=== PATIENT | male | born 1960 | race Caucasian/White ===

== ENCOUNTER 2018-11-09 08:28 | Inpatient (IN) | payer MEDICAID ==
[~2018-11-09] VITALS: Ht 172.7 cm; Wt 77.1 kg
[~2018-11-09 08:28] MED LIST: HYDR25SU23 PR; PANT40TA4 PO
[2018-11-09 08:33] VITALS: Ht 172.7 cm; Wt 77.1 kg
--- NOTE | 2018-11-09 09:34 | ERD ---
ER Documentation Chief Complaint Chief Complaint blood in stool x 1 week HPI 58-year-old man complaining of blood in stool x1 week, states he has blood with most every bowel movement and mild pain with defecation. He has been feeling dizzy and lightheaded for the last couple days as well. He denies fevers or chills, no chest pain or shortness of breath, no complaints of vomiting or diarrhea ROS All systems reviewed and are negative except as per history of present illness. Medications Home Meds Discontinued Scripts Hydrocortisone Acetate (Anusol-Hc) 25 Mg Supp.rect, 25 MG [place] BID, #14 SUPP.RECT Prov:MARYANA LOCKETT S. 07/23/18 Pantoprazole* (Pantoprazole*) 40 Mg Tablet.dr, 40 MG PO BID@06,18, #60 5 Refills Prov:MARYANA LOCKETT S. 07/23/18 Allergies Allergies: Coded Allergies: No Known Allergy (Unverified , 11/09/18) PMhx/Soc Duodenal ulcer and erosive gastritis, anemia, asthma, history of small bowel obstruction Medical and Surgical Hx: pt denies Medical Hx History of Surgery: No Anesthesia Reaction: No Hx Neurological Disorder: No Hx Respiratory Disorders: Yes (asthma for 20 years) Hx Cardiac Disorders: No Hx Psychiatric Problems: No Hx Miscellaneous Medical Probl: No Hx Alcohol Use: Yes (sometimes during the weekends) Hx Substance Use: No Hx Tobacco Use: No Smoking Status: Never smoker FmHx Family History: No diabetes Physical Exam Vitals Vital Signs Date Temp Pulse Resp B/P (MAP) Pulse Ox O2 O2 Flow FiO2 Time Delivery Rate 11/09/18 98.1 81 16 154/74 100 08:33 (100) Physical Exam Const: No acute distress, afebrile HEENT: Pale conjunctive, no goiter, no jaundice, moist mucous membranes Resp: Clear to auscultation bilaterally Cardio: Regular rate and rhythm, no murmurs Abd: Soft, non tender, non distended, no rigidity or rebound Skin: No petechiae or rashes Back: No midline or flank tenderness Ext: No cyanosis, or edema Neur: Awake and alert x3, no focal deficits or facial asymmetry Psych: Normal Mood and Affect Result Diagram: 11/09/18 1040 11/09/18 1040 Results 24 hrs Laboratory Tests Test 11/09/18 10:40 White Blood Count 4.2 10^3/ul Red Blood Count 3.85 10^6/ul Hemoglobin 7.2 g/dl Hematocrit 25.0 % Mean Corpuscular Volume 64.9 fl Mean Corpuscular Hemoglobin 18.7 pg Mean Corpuscular Hemoglobin Concent 28.8 g/dl Red Cell Distribution Width 17.7 % Platelet Count 420 10^3/UL Mean Platelet Volume 10.1 fl Immature Granulocytes % 0.200 % Neutrophils % 55.5 % Lymphocytes % 32.5 % Monocytes % 9.9 % Eosinophils % 1.4 % Basophils % 0.5 % Nucleated Red Blood Cells % 0.0 /100WBC Immature Granulocytes # 0.010 10^3/ul Neutrophils # 2.3 10^3/ul Lymphocytes # 1.4 10^3/ul Monocytes # 0.4 10^3/ul Eosinophils # 0.1 10^3/ul Basophils # 0.0 10^3/ul Nucleated Red Blood Cells # 0.0 10^3/ul Prothrombin Time 13.4 Sec Prothrombin Time Ratio 1.0 INR International Normalized Ratio 1.01 Activated Partial Thromboplast Time 30.3 Sec Sodium Level 140 mmol/L Potassium Level 4.2 mmol/L Chloride Level 108 mmol/L Carbon Dioxide Level 26 mmol/L Anion Gap 6 Blood Urea Nitrogen 13 mg/dl Creatinine 0.78 mg/dl Est Glomerular Filtrat Rate mL/min > 60 mL/min Glucose Level 111 mg/dl Calcium Level 9.2 mg/dl Total Bilirubin 0.5 mg/dl Direct Bilirubin 0.00 mg/dl Indirect Bilirubin 0.5 mg/dl Aspartate Amino Transf (AST/SGOT) 18 IU/L Alanine Aminotransferase (ALT/SGPT) 29 IU/L Alkaline Phosphatase 72 IU/L Total Protein 7.7 g/dl Albumin 4.2 g/dl Globulin 3.50 g/dl Albumin/Globulin Ratio 1.20 Lipase 60 U/L Current Medications Medications Dose Sig/Phan Start Time Status Last (Trade) Ordered Route PRN Stop Time Admin Dose Reason Admin Sodium 1,000 ml @ Q1H STAT 11/09/18 DC 11/09/18 Chloride 1,000 mls/hr IV 10:04 10:04 11/09/18 11:03 Procedures/MDM IV line was established patient was placed on director strategy rhythm strip revealed a sinus rhythm at about 80 bpm with upright P and T waves. Patient was afebrile I administered 1 L normal saline IV CBC reveals anemia with a hemoglobin of 7.2, lecture lites are unremarkable, liver function tests normal Patient has an external hemorrhoid on exam and I suspect his bleeding with bowel movements and has caused anemia, his last hemoglobin was over 8. I ordered transfusion 1 unit PRBC IV over 2 hours Patient will be admitted to [facility] for continued medical management, transfusion, GI consultation Departure Diagnosis: Primary Impression: Symptomatic anemia Additional Impression: Bleeding hemorrhoid Condition: ASHLEIGH Sheppard MD November 09, 2018 09:34
[2018-11-09] MEDS ORDERED: SOD CHLORIDE 0.9% 1,000 ML IV STA (10:04)
[2018-11-09] MEDS ORDERED: ZOLPIDEM 5 MG TAB PO PRN (15:00)
[2018-11-09] MEDS ORDERED: ALBUTEROL 0.083% (NEB) 2.5 MG/3 ML AMP HHN ONE (15:00)
[2018-11-09] MEDS ORDERED: ACETAMINOPHEN 325 MG TAB PO PRN (15:00)
[2018-11-09] MEDS ORDERED: HYDROCODONE/APAP (5/325) TAB PO PRN (15:00)
[2018-11-09] MEDS: DOCUSATE SODIUM 100 MG CAP PO SCH (15:00)
[2018-11-09] MEDS ORDERED: ONDANSETRON 4 MG INJ IV PRN (15:00)
--- NOTE | 2018-11-09 15:06 | HP ---
Date/Time of Note Date/Time of Note DATE: 11/09/18 TIME: 14:54 Assessment/Plan VTE Prophylaxis SCD applied (from Nsg): Yes Pharmacological prophylaxis: NA/contraindicated Pharm contraindication: bleeding Assessment/Plan Hospital Course 1. hematochezia : recurrent -colonoscopy 06/2018 showed polyps removed in the ascending colon as well as in the rectum -:. Pathology on ascending colon polyps showed tubular adenoma and the rectal polyp showed leiomyomatous polyps without additional findings -GI consult -stool softeners 2. Acute on chronic blood loss anemia -transfuse 2 units 3. Known kidney mass -needs f/u screening CT in 2 months -repeat USS? -no reports of hematuria though Result Diagram: 11/09/18 1040 11/09/18 1040 Results 24hrs Laboratory Tests Test 11/09/18 10:40 White Blood Count 4.2 #L Red Blood Count 3.85 #L Hemoglobin 7.2 L Hematocrit 25.0 L Mean Corpuscular Volume 64.9 #L Mean Corpuscular Hemoglobin 18.7 #L Mean Corpuscular Hemoglobin Concent 28.8 L Red Cell Distribution Width 17.7 H Platelet Count 420 #H Mean Platelet Volume 10.1 Immature Granulocytes % 0.200 Neutrophils % 55.5 Lymphocytes % 32.5 Monocytes % 9.9 Eosinophils % 1.4 Basophils % 0.5 Nucleated Red Blood Cells % 0.0 Immature Granulocytes # 0.010 Neutrophils # 2.3 Lymphocytes # 1.4 Monocytes # 0.4 Eosinophils # 0.1 Basophils # 0.0 Nucleated Red Blood Cells # 0.0 Prothrombin Time 13.4 Prothrombin Time Ratio 1.0 INR International Normalized Ratio 1.01 Activated Partial Thromboplast Time 30.3 Sodium Level 140 Potassium Level 4.2 Chloride Level 108 Carbon Dioxide Level 26 Anion Gap 6 Blood Urea Nitrogen 13 Creatinine 0.78 Est Glomerular Filtrat Rate mL/min > 60 Glucose Level 111 Calcium Level 9.2 Total Bilirubin 0.5 Direct Bilirubin 0.00 Indirect Bilirubin 0.5 Aspartate Amino Transf (AST/SGOT) 18 Alanine Aminotransferase (ALT/SGPT) 29 Alkaline Phosphatase 72 Total Protein 7.7 Albumin 4.2 Globulin 3.50 H Albumin/Globulin Ratio 1.20 Lipase 60 HPI/ROS Admit Date/Time Admit Date/Time Hx of Present Illness 58-year-old male who presents to emergency room with concerns for rectal bleeding of one days duration. Patient has had on and off rectal bleeding he states for the last 1 year. He was admitted to this facility June 2018 at that time he was admitted for recurrent small bowel obstruction but also due to hematochezia he underwent EGD and colonoscopy. EGD was found to have a duodenal ulcer and erosive esophagitis, colonoscopy had polyps removed in the ascending colon as well as in the rectal:. Pathology and ascending colon polyps showed tubular adenoma and the rectal polyp showed ligamentous polyps without additional findings. Patient did well for a while but hematochezia has recurred. In the ER, he was found to have a hemoglobin of 7.2. He is being admitted for further work-up and optimization. He denies passing out, denies dizziness, denies lethargy though. Denies melena. . ROS 12 point review if systems was done and pertinent findings are as noted. . PMH/Family/Social Past Medical History H/o Rectal bleeding- s/p Colonoscopy 07/21/18 x3 colon polyps, removed B-Ascending colon polyps x2, out by snare: -- Tubular adenomas involving all fragments. -- Non-involved colon mucosa is very scanty. -- No high grade dysplasia is identified. C-Rectal polyp, biopsies: -- Leiomyomatous polyp. s/p EGD 07/21/18- Duodenal ulcer, severe esophagitis A-Esophageal biopsies: -- Erosive esophagitis with focal acute neutrophilic exudate, associated with acute and chronic inflammation and mild eosinophilic cell infiltrate in the lamina propria. -- A scanty glandular epithelium is present. -- An Alcian Blue with a PAS counterstain and appropriate control, is negative for fungal organisms and intestinal metaplasia in the scanty glandular epithelium. -- A Giemsa stain with an appropriate control, is negative for H. pylori organisms. -- No malignancy, dysplasia or viral cytopathic effect is identified. Iron deficiency anemia Left kidney mass -There is a 12.6 mm exophytic mass near the lower pole of the left kidney, complex cyst or solid lesion kast seen 07/11 -recommends repeat CT in 6 months 12/2018 Asthma History of SBO Coded Allergies: No Known Allergy (Unverified , 11/09/18) Past Surgical History Past Surgical Hx: no surgical history Family History Significant Family History: no pertinent family hx Social History Alcohol Use: none Smoking Status: Never smoker Drug Use: other Exam/Review of Systems Vital Signs Vitals Vital Signs Date Temp Pulse Resp B/P (MAP) Pulse Ox O2 O2 Flow FiO2 Time Delivery Rate 11/09/18 97.8 67 18 129/70 100 Room Air 10:40 (89) Exam Constitutional: alert, oriented; No distress Psych: nl mood/affect Head: normocephalic Eyes: PERRL ENMT: mucosa pink and moist Neck: supple Respiratory: clear to auscultation Cardiovascular: regular rate and rhythm; No murmurs/extra sounds Gastrointestinal: soft, non-tender, bowel sounds Genitourinary - Male: nl penis, nl scrotum Extremities: No edema Neurological: nl mental status, nl speech, nl strength Skin: No ecchymosis Additional Comments rectal exam: visual only, no visible hemorrhoids GAUDENCIO LEYVA November 09, 2018 15:06
[2018-11-09 15:50] VITALS: BP 103/68; PULSE 56; RESP 18
[2018-11-09 16:35] VITALS: BP 135/62; RESP 18
--- NOTE | 2018-11-09 16:52 | CONS ---
Assessment/Plan Assessment/Plan Hospital Course (Demo Recall) Summary Assessment and Plan: Assessment: Hematochezia Microcytic anemia Personal history of colon polyps (TA, and Leiomyomatous) s/p Colonoscopy 07/21/18 x3 colon polyps, ablated Left kidney mass -12.6 mm exophytic mass medial lower pole left kidney with small calcifications. -Work-up per hospitalist Asthma History of SBO Plan: Monitor labs transfuse for hgb less than 7.5 Clear liquid diet NPO after 11/10/18 0830 Colonoscopy tomorrow Endoscopy - risks/benefits/alternatives/indications of procedure and sedation/anesthesia discussed with patient who states understading and gives informed consent to proceed. Further recommendations based on clinical course Patient seen in collaboration with Dr. Granados CC: LYNNE GRANADOS MD ; Consultation Date/Type/Reason Admit Date/Time Date of Consultation: November 09, 2018 Type of Consult GI Reason for Consultation Hematochezia Date/Time of Note DATE: 11/09/18 TIME: 16:41 Hx of Present Illness This is a 58-year-old male with past medical history of small bowel obstruction, asthma, esophagitis, duodenal ulcer, colon polyps, previous lower GI bleed. Who presents to the hospital with complaints of hematochezia x2 weeks. Patient states he has been having bright red blood per rectum daily for the past 2 weeks. He denies nausea/vomiting, constipation, or diarrhea. He additionally denies any abdominal pain. Patient was previously admitted here at this hospital in June for hematochezia he underwent EGD and colonoscopy at that time showing severe esophagitis and duodenal ulcer as well as multiple colon polyps status post ablation pathology came back as tubular adenoma as well as Leiomyomatous. With work-up in the ED patient had lab work completed which revealed severe anemia he is status post blood transfusion. Discussed plan for repeat colonoscopy tomorrow by Dr. Granados. I reviewed risk/benefits of sedation and procedure patient verbalized understanding is agreeable for colonoscopy tomorrow Review of Systems: [A 12 system, review was conducted and is negative except as noted in the HPI or here.] Past Medical History Home Meds Discontinued Scripts Hydrocortisone Acetate (Anusol-Hc) 25 Mg Supp.rect, 25 MG [place] BID, #14 SUPP.RECT Prov:MARYANA LOCKETT S. 07/23/18 Pantoprazole* (Pantoprazole*) 40 Mg Tablet.dr, 40 MG PO BID@06,18, #60 5 Refills Prov:MARYANA LOCKETT 07/23/18 Medications Current Medications Ondansetron HCl (Zofran Inj) 4 mg Q6H PRN IV NAUSEA/VOMITING; Start 11/09/18 at 15:00 Acetaminophen (Tylenol Tab) 650 mg Q6H PRN PO .PAIN 1-3 OR TEMP; Start 11/09/18 at 15:00 Acetaminophen/ Hydrocodone Bitart ([place] (5/325)) 1 tab Q6H PRN PO .MOD PAIN 4- 6; Start 11/09/18 at 15:00 Docusate Sodium (Colace) 100 mg Q12H PO ; Start 11/09/18 at 15:00 Zolpidem Tartrate (Ambien) 5 mg QHS PRN PO .INSOMNIA; Start 11/09/18 at 15:00 Pantoprazole (Protonix Tab) 40 mg DAILY@06 PO ; Start 11/10/18 at 06:00 Montelukast Sodium (Singulair) 10 mg HS PO ; Start 11/09/18 at 21:00 Allergies: Coded Allergies: No Known Allergy (Unverified , 11/09/18) Past Surgical History Past Surgical Hx: no surgical history Social History Alcohol Use: none Smoking Status: Former smoker Drug Use: other Exam/Review of Systems Exam Vitals Vital Signs Date Temp Pulse Resp B/P (MAP) Pulse Ox O2 O2 Flow FiO2 Time Delivery Rate 11/09/18 98.1 18 135/62 98 Room Air 16:35 (86) 11/09/18 58 15:03 Constitutional: alert, oriented Psych: no complaints, nl mood/affect Head: normocephalic Eyes: nl conjunctiva Neck: supple Respiratory: clear to auscultation Cardiovascular: regular rate and rhythm Gastrointestinal: soft, non-tender, bowel sounds; No distended Musculoskeletal: nl extremities to inspection Results Result Diagram: 11/09/18 1040 11/09/18 1040 Results 24hrs Laboratory Tests Test 11/09/18 10:40 White Blood Count 4.2 #L Red Blood Count 3.85 #L Hemoglobin 7.2 L Hematocrit 25.0 L Mean Corpuscular Volume 64.9 #L Mean Corpuscular Hemoglobin 18.7 #L Mean Corpuscular Hemoglobin Concent 28.8 L Red Cell Distribution Width 17.7 H Platelet Count 420 #H Mean Platelet Volume 10.1 Immature Granulocytes % 0.200 Neutrophils % 55.5 Lymphocytes % 32.5 Monocytes % 9.9 Eosinophils % 1.4 Basophils % 0.5 Nucleated Red Blood Cells % 0.0 Immature Granulocytes # 0.010 Neutrophils # 2.3 Lymphocytes # 1.4 Monocytes # 0.4 Eosinophils # 0.1 Basophils # 0.0 Nucleated Red Blood Cells # 0.0 Prothrombin Time 13.4 Prothrombin Time Ratio 1.0 INR International Normalized Ratio 1.01 Activated Partial Thromboplast Time 30.3 Sodium Level 140 Potassium Level 4.2 Chloride Level 108 Carbon Dioxide Level 26 Anion Gap 6 Blood Urea Nitrogen 13 Creatinine 0.78 Est Glomerular Filtrat Rate mL/min > 60 Glucose Level 111 Calcium Level 9.2 Total Bilirubin 0.5 Direct Bilirubin 0.00 Indirect Bilirubin 0.5 Aspartate Amino Transf (AST/SGOT) 18 Alanine Aminotransferase (ALT/SGPT) 29 Alkaline Phosphatase 72 Total Protein 7.7 Albumin 4.2 Globulin 3.50 H Albumin/Globulin Ratio 1.20 Lipase 60 Medications Medication Current Medications Ondansetron HCl (Zofran Inj) 4 mg Q6H PRN IV NAUSEA/VOMITING; Start 11/09/18 at 15:00 Acetaminophen (Tylenol Tab) 650 mg Q6H PRN PO .PAIN 1-3 OR TEMP; Start 11/09/18 at 15:00 Acetaminophen/ Hydrocodone Bitart ([place] (5/325)) 1 tab Q6H PRN PO .MOD PAIN 4- 6; Start 11/09/18 at 15:00 Docusate Sodium (Colace) 100 mg Q12H PO ; Start 11/09/18 at 15:00 Zolpidem Tartrate (Ambien) 5 mg QHS PRN PO .INSOMNIA; Start 11/09/18 at 15:00 Pantoprazole (Protonix Tab) 40 mg DAILY@06 PO ; Start 11/10/18 at 06:00 Montelukast Sodium (Singulair) 10 mg HS PO ; Start 11/09/18 at 21:00 BRIDGETT PERRY November 09, 2018 16:51
[2018-11-09] MEDS ORDERED: BISACODYL (EC) 5 MG TAB PO ONE (17:00)
[2018-11-09] MEDS ORDERED: MAGNESIUM CITRATE 300 ML BTL PO ONE (17:30)
[2018-11-09] MEDS ORDERED: POLYETHYLENE GLYCOL 3350 119 GM POWDER PO ONE (18:30)
[2018-11-09 20:16] VITALS: BP 124/67; PULSE 56; RESP 20
[2018-11-09] MEDS ORDERED: SOD CHLORIDE 0.9% 250 ML IV* ONE (21:08)
[2018-11-09] MEDS: MONTELUKAST 10 MG TAB PO SCH (21:18)
[2018-11-10] VITALS (12 sets, daily range): BP systolic 107–154; BP diastolic 67–85; PULSE 52–68; RESP 9–22
[2018-11-10] MEDS: DEXTROSE 5%-0.45% NACL 1,000 ML IV SCH ×2 (01:22→13:31)
[2018-11-10] MEDS: DOCUSATE SODIUM 100 MG CAP PO SCH ×2 (03:00→15:00)
[2018-11-10] MEDS ORDERED: PANTOPRAZOLE (EC) 40 MG TAB PO ONE (04:52)
[2018-11-10] MEDS: PANTOPRAZOLE (EC) 40 MG TAB PO SCH (05:45)
[2018-11-10] MEDS ORDERED: POLYETHYLENE GLYCOL 3350 119 GM POWDER PO ONE (06:00)
[2018-11-10] MEDS ORDERED: BISACODYL (EC) 5 MG TAB PO ONE (08:00)
--- NOTE | 2018-11-10 15:28 | PREAC ---
Date/Time of Note Date/Time of Note DATE: 11/10/18 TIME: 15:24 Anesthesia Eval and Record Evaluation Time Pre-Procedure Interview DATE: 11/10/18 TIME: 15:24 Age 58 Sex male NPO: 8 hrs Preoperative diagnosis HEMATOCHEZIA Planned procedure COLONOSCOPY WITH BIOPSIES Past Medical History Past Medical History: Includes Pulm: Asthma GI: Other (RECTAL BLEEDING) Heme: Anemia Surgery & Anesthesia Issues No known issue Meds Anticoagulation: No Beta Bebo within 24 hr: No Reason Beta Bebo not given: Pt. not on B-Bebo Discontinued Scripts Hydrocortisone Acetate (Anusol-Hc) 25 Mg Supp.rect, 25 MG [place] BID, #14 SUPP.RECT Prov:MARYANA LOCKETT S. 07/23/18 Pantoprazole* (Pantoprazole*) 40 Mg Tablet.dr, 40 MG PO BID@06,18, #60 5 Refills Prov:MARYANA LOCKETT S. 07/23/18 Current Medications Ondansetron HCl (Zofran Inj) 4 mg Q6H PRN IV NAUSEA/VOMITING Last administered on 11/10/18at 12:06; Admin Dose 4 MG; Start 11/09/18 at 15:00 Acetaminophen (Tylenol Tab) 650 mg Q6H PRN PO .PAIN 1-3 OR TEMP; Start 11/09/18 at 15:00 Acetaminophen/ Hydrocodone Bitart ([place] (5/325)) 1 tab Q6H PRN PO .MOD PAIN 4- 6; Start 11/09/18 at 15:00 Docusate Sodium (Colace) 100 mg Q12H PO ; Start 11/09/18 at 15:00 Zolpidem Tartrate (Ambien) 5 mg QHS PRN PO .INSOMNIA; Start 11/09/18 at 15:00 Pantoprazole (Protonix Tab) 40 mg DAILY@06 PO Last administered on 11/10/18at 05:45; Admin Dose 40 MG; Start 11/10/18 at 06:00 Montelukast Sodium (Singulair) 10 mg HS PO Last administered on 11/09/18at 21:18; Admin Dose 10 MG; Start 11/09/18 at 21:00 Dextrose/Sodium Chloride 1,000 ml @ 80 mls/hr [id number] IV Last administered on 11/10/18at 13:31; Admin Dose 80 MLS/HR; Start 11/10/18 at 00:00 Meds reviewed: Yes Allergies Coded Allergies: No Known Allergy (Unverified , 11/09/18) Allergies Reviewed: Yes Labs/Studies Labs Reviewed: Reviewed by anesthesiologist Result Diagram: 11/10/18 0612 11/10/18 0612 Laboratory Tests 11/10/18 06:12 test: N/A Pre-procedure Exam Last vitals Vital Signs Date Temp Pulse Resp B/P (MAP) Pulse Ox O2 O2 Flow FiO2 Time Delivery Rate 11/10/18 98.4 66 18 154/85 100 Room Air 15:22 (108) Airway: Adequate mouth opening, Adequate thyromental dist Mallampati: Mallampati II Teeth: Normal Lung: Normal Heart: Normal ASA Physical Status ASA physical status: 2 Emergency: None Planned Anesthetic General/MAC: MAC Planned Pain Management Parenteral pain med Pre-operative Attestations Prior to commencing anesthesia and surgery, the patient was re-evaluated, there was verification of: *The patient's identity *The results of appropriate recent lab work and preoperative vital signs *The above evaluation not changing prior to induction *Anesthetic plan, risk benefits, alternative and complications discussed with patient/family; questions answered; patient/family understands, accepts and wishes to proceed. Jomar Hilliard M.D. November 10, 2018 15:28
[2018-11-10] MEDS ORDERED: LIDOCAINE 2% (SDV) 5 ML INJ ONE (15:30)
[2018-11-10] MEDS ORDERED: PROPOFOL 40 ML ONE (15:30)
--- NOTE | 2018-11-10 16:00 | PAC ---
Date/Time of Note Date/Time of Note DATE: 11/10/18 TIME: 16:00 Post-Anesthesia Notes Post-Anesthesia Note Last documented vital signs Vital Signs Date Temp Pulse Resp B/P (MAP) Pulse Ox O2 O2 Flow FiO2 Time Delivery Rate 11/10/18 98.4 66 18 154/85 100 Room Air 15:22 (108) Activity: WNL Respiratory function: WNL Cardiovascular function: WNL Mental status: Baseline Pain reasonably controlled: Yes Hydration appropriate: Yes Nausea/Vomiting absent: Yes Jomar Hilliard M.D. November 10, 2018 16:00
[2018-11-10] MEDS ORDERED: HYDROCORTISONE 25 MG SUPP PR PRN (16:30)
[2018-11-10] MEDS: MONTELUKAST 10 MG TAB PO SCH (21:04)
[2018-11-11 02:37] VITALS: BP 125/79; PULSE 60; RESP 18
[2018-11-11] MEDS: DOCUSATE SODIUM 100 MG CAP PO SCH ×2 (02:46→15:00)
[2018-11-11] MEDS: PANTOPRAZOLE (EC) 40 MG TAB PO SCH (05:24)
[2018-11-11 08:10] VITALS: BP 118/81; PULSE 87; RESP 16
--- NOTE | 2018-11-11 14:04 | EN ---
Date/Time of Note Date/Time of Note DATE: 11/10/18 TIME: 14:00 Event Note Medicine Medicine Event Note PROGRESS NOTE DATE OF SERVICE: 11/10/18 SUBJECTIVE: no further bleeding, was NPO for colonoscopy OBJECTIVE: 98.3 / 68 / 20 / 121/77 / 98 RA Constitutional: alert, oriented Head: atraumatic, normocephalic Neck: non-tender, supple Respiratory: clear to auscultation Cardiovascular: regular rate and rhythm Gastrointestinal: S/ NT / ND / +BS Extremities: no edema, good radial pulses LABS AND IMAGING: reviewed ASSESSMENT: 1. hematochezia : recurrent -colonoscopy 06/2018 showed polyps removed in the ascending colon as well as in the rectum -:. Pathology on ascending colon polyps showed tubular adenoma and the rectal polyp showed leiomyomatous polyps without additional findings -Appreciate GI consult, colonoscopy today -stool softeners 2. Acute on chronic blood loss anemia -transfused 2 units 3. Known kidney mass -needs f/u screening CT in 2 months -repeat USS? -no reports of hematuria though GAUDENCIO LEYVA November 11, 2018 14:04
[2018-11-11] MEDS ORDERED: Hydrocortisone Supp PR (14:10)
[2018-11-11] MEDS ORDERED: MONT10TA24 PO (14:10)
[2018-11-11] MEDS ORDERED: PSYL3.4P5 PO (14:10)
[2018-11-11] MEDS ORDERED: PHEN1SUP80 PR (14:10)
[2018-11-11] MEDS ORDERED: DOCU-144 PO (14:10)
--- NOTE | 2018-11-11 14:18 | DS ---
Date/Time of Note Date/Time of Note DATE: 11/11/18 TIME: 14:04 Discharge Summary Admission/Discharge Info Admit Date/Time November 09, 2018 at 12:38 Discharge Date/Time Discharge Diagnosis 1. hematochezia : recurrent -repeat colonoscopy November 10, 2018 showed large internal hemorrhoids likely cause of bleeding as well as a diminutive 2 mm polyp in the rectum that was ablated. 2. Acute on chronic blood loss anemia -transfused 2 units 3. Known kidney mass -needs f/u screening CT in 2 months . Patient Condition: Stable Consults GI: Martín Granados MD . Procedures See hospital course . Hx of Present Illness 58-year-old male who presents to emergency room with concerns for rectal bleeding of one days duration. Patient has had on and off rectal bleeding he states for the last 1 year. He was admitted to this facility June 2018 at that time he was admitted for recurrent small bowel obstruction but also due to hematochezia he underwent EGD and colonoscopy. EGD was found to have a duodenal ulcer and erosive esophagitis, colonoscopy had polyps removed in the ascending colon as well as in the rectal:. Pathology and ascending colon polyps showed tubular adenoma and the rectal polyp showed ligamentous polyps without additional findings. Patient did well for a while but hematochezia has recurred. In the ER, he was found to have a hemoglobin of 7.2. He is being admitted for further work-up and optimization. He denies passing out, denies dizziness, denies lethargy though. Denies melena. . Hospital Course Patient was admitted and optimized with blood transfusion. He underwent patient also has a repeat colonoscopy November 10, 2018 showed large internal hemorrhoids likely cause of bleeding as well as a diminutive 2 mm polyp in the rectum that was ablated. -GI final recommendations are high-fiber diet, if bleeding persists, patient will need to consider hemorrhoidectomy. Recommend colonoscopy in 5 years. The patient also has a known kidney mass needs f/u screening CT in 2 months. He was reminded about this. He will follow-up with his primary care doctor. . addendum: patient had large bloody BM discharge held. f/u gi recs will try to get surgical consult. . Home Meds Active Scripts Albuterol Sulfate* (Ventolin HFA*) 18 Gm Hfa.aer.ad, 2 PUFF INHALATION Q4H PRN for sob , #1 INHALER Prov:GAUDENCIO LEYVA 11/11/18 Psyllium Husk-Aspartame (Metamucil Fiber Singles Packet) 3.4 Gm Powd.pack, 3.4 GM PO DAILY, #30 PACKET 2 Refills Prov:GAUDENCIO LEYVA. 11/11/18 Phenylephrine HCl/[place] Butter* (Preparation H* Suppository) 1 Each Supp.rect, [address] TID PRN for PAIN, #30 SUPP.RECT Prov:GAUDENCIO LEYVA. 11/11/18 [Hydrocortisone Supp] 25 MG SUPP No Conflict Check, [address] BID PRN for HEMORROID PAIN/ITCHING, #30 SUPP.RECT Prov:GAUDENCIO LEYVA. 11/11/18 Docusate Sodium* (Colace*) 100 Mg Capsule, 100 MG PO Q12H, #60 CAP 2 Refills Prov:GAUDENCIO LEYVA. 11/11/18 Montelukast Sodium* (Montelukast Sodium*) 10 Mg Tablet, 10 MG PO HS for 30 Days, #30 TAB 2 Refills Prov:GAUDENCIO LEYVA 11/11/18 Discontinued Scripts Hydrocortisone Acetate (Anusol-Hc) 25 Mg Supp.rect, [address] BID, #14 SUPP.RECT Prov:MARYANA LOCKETT. 07/23/18 Pantoprazole* (Pantoprazole*) 40 Mg Tablet., 40 MG PO BID@06,18, #60 5 Refills Prov:MARYANA LOCKETT S. 07/23/18 Follow-up Plan Your colonoscopy showed that you have a large hemorrhoid in your rectum. Also a rectal polyp was ablated. 1. You need to maintain a diet very high in fiber. I have started you on stool softeners and fiber supplements to help with this. Your nurse who provided with handouts to help guide you with a high-fiber diet. 2. You need a repeat colonoscopy in 5 years 3. If your bleeding persists, you will have to consider hemorrhoid surgery. 4. See your primary care doctor as soon as possible to let them know all of this. La colonoscopia demostr que tienes megan gran hemorroide en el recto. Tambin se drake extirpado un plipo rectal. 1. usted necesita mantener megan dieta muy octavio en fibra. Te he empezado con ablandadores de heces y suplementos de fibra para ayudar con esto. Lambert enfermera que proporcion folletos para ayudarle a guiarle con megan dieta octavio en fibra. 2. se necesita megan colonoscopia repetida en 5 aos 3. Si lambert sangrado persiste, usted tendr que considerar la ciruga de hemorroides. 4. Tambin tiene emgan masa renal que hemos estado monitoreando. Es necesario repetir la exploracin por TAC de los riones despus de 2 meses para asegurarse de que no se est haciendo ms jennifer. 5. Consulte a lambert mdico de atencin primaria garibay pronto fabienne sea posible para que sepan todo esto. . Primary Care Provider Care Physician No Primary Time spent on discharge: > 30 minutes GAUDENCIO LEYVA November 11, 2018 14:15
--- NOTE | 2018-11-11 14:20 | PDOCDIS ---
Discharge Instructions DIAGNOSIS Discharge Diagnosis 1. hematochezia : recurrent -colonoscopy 11/08: ablated rectal polyp and large internal hemorrhoids causing vleeding 2. Acute on chronic blood loss anemia -transfused 2 units PRBCs 3. Known kidney mass -needs f/u screening CT in 2 months . CONDITION 2 [id number] Patient Condition: [id number] Stable HOME CARE INSTRUCTIONS: [id number] Special Diet: [id number] High fiber diet ACTIVITY: [id number] Activity Restrictions: [id number] Slowly Increase Activity Rest between Activity FOLLOW UP/APPOINTMENTS Follow-up Plan Your colonoscopy showed that you have a large hemorrhoid in your rectum. Also a rectal polyp was ablated. 1. You need to maintain a diet very high in fiber. I have started you on stool softeners and fiber supplements to help with this. Your nurse who provided with handouts to help guide you with a high-fiber diet. 2. You need a repeat colonoscopy in 5 years 3. If your bleeding persists, you will have to consider hemorrhoid surgery. 4. See your primary care doctor as soon as possible to let them know all of this. La colonoscopia demostr que tienes megan gran hemorroide en el recto. Tambin se drake extirpado un plipo rectal. 1. usted necesita mantener megan dieta muy octavio en fibra. Te he empezado con ablandadores de heces y suplementos de fibra para ayudar con esto. Lambert enfermera que proporcion folletos para ayudarle a guiarle con megan dieta octavio en fibra. 2. se necesita megan colonoscopia repetida en 5 aos 3. Si lambert sangrado persiste, usted tendr que considerar la ciruga de hemorroi eva. 4. Tambin tiene megan masa renal que hemos estado monitoreando. Es necesario repetir la exploracin por TAC de los riones despus de 2 meses para asegurarse de que no se est haciendo ms jennifer. 5. Consulte a lambert mdico de atencin primaria garibay pronto fabienne sea posible para que sepan todo esto. . REFERRALS Other Referrals El gastroenterlogo que hizo la colonoscopia es el siguiente: Name, Degree: Martín Granados MD Specialty: Gastroenterology Comments: Office Address: [id number] [place] [id number] Office Office . GAUDENCIO LEYVA November 11, 2018 14:20
[2018-11-11] MEDS ORDERED: ALBU18HF INHALATION (14:23)
[2018-11-11 14:35] VITALS: BP 122/80; PULSE 69; RESP 16
--- NOTE | 2018-11-11 14:42 | PN ---
Date/Time of Note Date/Time of Note DATE: 11/11/18 TIME: 14:36 Assessment/Plan VTE Prophylaxis Risk score (from [facility])>0 risk: 3 SCD applied (from Ns): Yes Pharmacological prophylaxis: other (scds) Lines/Catheters IV Catheter Type (from [facility] Saline Lock Urinary Cath still in place: No Assessment/Plan Hospital Course Summary Assessment and Plan: Assessment: Hematochezia Colonoscopy 11/10/2018 Diminutive 2 mm polyp in the rectum, ablated Biopsy show tubular adenoma Large internal hemorrhoids likely source of hematochezia Microcytic anemia Personal history of colon polyps (TA, and Leiomyomatous) s/p Colonoscopy 07/21/18 x3 colon polyps, ablated Left kidney mass -12.6 mm exophytic mass medial lower pole left kidney with small calcifications. -Work-up per hospitalist Asthma History of SBO Plan: Plan for discharge today however patient just had a bowel movement large amounts of bright red blood, discharged on hold We will start Canasa suppository nightly Follow high-fiber diet Monitor h/h- INR Surgical consult for possible hemorrhoidectomy recurrent bleeding Patient seen in collaboration with Dr. Granados Subjective: Course reviewed with nursing staff Patient interviewed and examined All labs, imaging and other results reviewed The patient sitting up in bed, continues to have rectal bleeding. Discussed results of colonoscopy with signal maintenance technician and discussed plan pt verbalized understanding. No c/o n/v or abd pain. Constitutional: alert, oriented Psych: no complaints, nl mood/affect Head: normocephalic Eyes: nl conjunctiva Neck: supple Respiratory: clear to auscultation Cardiovascular: regular rate and rhythm Gastrointestinal: soft, non-tender, bowel sounds; No distended Musculoskeletal: nl extremities to inspection Result Diagram: 11/10/1861111/10/18611 Exam/Review of Systems Exam Vitals Vital Signs Date Temp Pulse Resp B/P (MAP) Pulse Ox O2 O2 Flow FiO2 Time Delivery Rate 11/11/18 98.1 87 16 118/81 100 08:10 (93) 11/10/18 Room Air 17:00 11/10/18 3.0 16:10 Intake and Output 11/10/18 11/10/18 11/11/18 1515:00 23:00 07:00 IntakeIntake Total 480 ml 500 ml OutputOutput Total 500 ml BalanceBalance 480 ml 500 ml -500 ml Medications Medication Current Medications Ondansetron HCl (Zofran Inj) 4 mg Q6H PRN IV NAUSEA/VOMITING Last administered on 11/10/18at 12:06; Admin Dose 4 MG; Start 11/09/18 at 15:00 Acetaminophen (Tylenol Tab) 650 mg Q6H PRN PO .PAIN 1-3 OR TEMP; Start 11/09/18 at 15:00 Acetaminophen/ Hydrocodone Bitart ([place] (5/325)) 1 tab Q6H PRN PO .MOD PAIN 4- 6; Start 11/09/18 at 15:00 Docusate Sodium (Colace) 100 mg Q12H PO ; Start 11/09/18 at 15:00 Zolpidem Tartrate (Ambien) 5 mg QHS PRN PO .INSOMNIA; Start 11/09/18 at 15:00 Pantoprazole (Protonix Tab) 40 mg DAILY@06 PO Last administered on 11/11/18at 05:24; Admin Dose 40 MG; Start 11/10/18 at 06:00 Montelukast Sodium (Singulair) 10 mg HS PO Last administered on 11/10/18at 21:04; Admin Dose 10 MG; Start 11/09/18 at 21:00 Hydrocortisone (Anusol-Hc Supp) 25 mg BID PRN [place] HEMORROID PAIN/ITCHING; Start 11/10/18 at 16:30 BRIDGETT PERRY November 11, 2018 14:42
--- NOTE | 2018-11-11 16:52 | CONS ---
Assessment/Plan Assessment/Plan Hospital Course (Demo Recall) 1. Hematochezia with noted internal and external hemorrhoids. On exam, hemorrhoids were very small; no overt bleeding noted -Ensure easy bowel movements without constipation> had lengthy discussion with patient regarding increasing fiber and fluids -Sits baths as needed -Hemorrhoid ointment -No emergent surgical intervention necessary at this time. If unimproved or worsens we will consider surgery at that point. Patient may follow with us as outpatient for eventual hemorrhoid surgery 2. Iron deficiency anemia: -Medical follow-up 3. Diminutive tubular adenoma -Medical follow-up 4. Left kidney mass: -Per medical team Thank you. Patient seen and examined in collaboration with Dr. Christiano Ahmadi. Consultation Date/Type/Reason Admit Date/Time Date of Consultation: November 11, 2018 Type of Consult Surgical Reason for Consultation Hemorrhoids Requesting Provider: GAUDENCIO LEYVA Date/Time of Note DATE: 11/11/18 TIME: 16:37 Hx of Present Illness Sergio Montana is a 58-year-old man with past medical history of rectal b leeding, colonoscopy with colon polyps, duodenal ulcer, severe esophagitis, iron deficiency anemia, left kidney mass, asthma, small bowel obstruction, who presents to the ED with concerns of bleeding rectally. He reports blood with bowel movements, Which has been ongoing for the past year. On admission, he was also noted to have anemia. He underwent colonoscopy which showed polyps as well as large internal hemorrhoids. Today he was noted to have blood on his stool. He denies dizziness, current overt bleeding, fevers, chills, congested cough, chest pain, palpitations, nausea, vomiting, other sources of bleed. General surgery was asked to evaluate. 12 point ROS was performed and is negative except as stated in HPI. Past Medical History As above Home Meds Active Scripts Albuterol Sulfate* (Ventolin HFA*) 18 Gm Hfa.aer.ad, 2 PUFF INHALATION Q4H PRN for sob , #1 INHALER Prov:GAUDENCIO LEYVA 11/11/18 Psyllium Husk-Aspartame (Metamucil Fiber Singles Packet) 3.4 Gm Powd.pack, 3.4 GM PO DAILY, #30 PACKET 2 Refills Prov:GAUDENCIO LEYVA 11/11/18 Phenylephrine HCl/[place] Butter* (Preparation H* Suppository) 1 Each Supp.rect, 1 EACH IA TID PRN for PAIN, #30 SUPP.RECT Prov:GAUDENCIO LEYVA 11/11/18 [Hydrocortisone Supp] 25 MG SUPP No Conflict Check, 25 MG IA BID PRN for HEMORR OID PAIN/ITCHING, #30 SUPP.RECT Prov:GAUDENCIO LEYVA. 11/11/18 Docusate Sodium* (Colace*) 100 Mg Capsule, 100 MG PO Q12H, #60 CAP 2 Refills Prov:GAUDENCIO LEYVA. 11/11/18 Montelukast Sodium* (Montelukast Sodium*) 10 Mg Tablet, 10 MG PO HS for 30 Days, #30 TAB 2 Refills Prov:GAUDENCIO LEYVA. 11/11/18 Discontinued Scripts Hydrocortisone Acetate (Anusol-Hc) 25 Mg Supp.rect, 25 MG IA BID, #14 SUPP.RECT Prov:MARYANA LOCKETT S. 07/23/18 Pantoprazole* (Pantoprazole*) 40 Mg Tablet.dr, 40 MG PO BID@06,18, #60 5 Refills Prov:MARYANA LOCKETT S. 07/23/18 Medications Current Medications Ondansetron HCl (Zofran Inj) 4 mg Q6H PRN IV NAUSEA/VOMITING Last administered on 11/10/18at 12:06; Admin Dose 4 MG; Start 11/09/18 at 15:00 Acetaminophen (Tylenol Tab) 650 mg Q6H PRN PO .PAIN 1-3 OR TEMP; Start 11/09/18 at 15:00 Acetaminophen/ Hydrocodone Bitart ([place] (5/325)) 1 tab Q6H PRN PO .MOD PAIN 4- 6; Start 11/09/18 at 15:00 Docusate Sodium (Colace) 100 mg Q12H PO ; Start 11/09/18 at 15:00 Zolpidem Tartrate (Ambien) 5 mg QHS PRN PO .INSOMNIA; Start 11/09/18 at 15:00 Pantoprazole (Protonix Tab) 40 mg DAILY@06 PO Last administered on 11/11/18at 05:24; Admin Dose 40 MG; Start 11/10/18 at 06:00 Montelukast Sodium (Singulair) 10 mg HS PO Last administered on 11/10/18at 21 :04; Admin Dose 10 MG; Start 11/09/18 at 21:00 Hydrocortisone (Anusol-Hc Supp) 25 mg BID PRN [place] HEMORROID PAIN/ITCHING; Start 11/10/18 at 16:30 Mesalamine (Canasa Supp) 1,000 mg HS IA ; Start 11/11/18 at 21:00 Allergies: Coded Allergies: No Known Allergy (Unverified , 11/09/18) Past Surgical History Past Surgical Hx: no surgical history Social History Alcohol Use: none Smoking Status: Former smoker Drug Use: other Exam/Review of Systems Exam Vitals Vital Signs Date Temp Pulse Resp B/P (MAP) Pulse Ox O2 O2 Flow FiO2 Time Delivery Rate 11/11/18 98.1 69 16 122/80 97 Room Air 14:35 (94) 11/10/18 3.0 16:10 Intake and Output 11/10/18 11/10/18 11/11/18 1515:00 23:00 07:00 IntakeIntake Total 480 ml 500 ml OutputOutput Total 500 ml BalanceBalance 480 ml 500 ml -500 ml Constitutional: alert, oriented Psych: anxiety (Minimal) Head: normocephalic, atraumatic Eyes: nl conjunctiva, EOMI, nl lids, nl sclera ENMT: nl external ears & nose, nl lips & teeth, mucosa pink and moist Neck: supple, non-tender; No jvd Respiratory: normal air movement; No congested cough Cardiovascular: regular rate and rhythm, nl pulses Gastrointestinal: soft, non-tender Genitourinary - Male: nl penis, nl scrotum Musculoskeletal: nl extremities to inspection, nl gait and stance Extremities: normal pulses Neurological: nl mental status, nl speech, nl strength Skin: nl turgor; No rash or lesions Additional Comments Rectal: Small external hemorrhoid, small palpable internal hemorrhoid, no blood noted Results Result Diagram: 11/10/1861111/10/18 0612 Medications Medication Current Medications Ondansetron HCl (Zofran Inj) 4 mg Q6H PRN IV NAUSEA/VOMITING Last administered on 11/10/18at 12:06; Admin Dose 4 MG; Start 11/09/18 at 15:00 Acetaminophen (Tylenol Tab) 650 mg Q6H PRN PO .PAIN 1-3 OR TEMP; Start 11/09/18 at 15:00 Acetaminophen/ Hydrocodone Bitart ([place] (5/325)) 1 tab Q6H PRN PO .MOD PAIN 4- 6; Start 11/09/18 at 15:00 Docusate Sodium (Colace) 100 mg Q12H PO ; Start 11/09/18 at 15:00 Zolpidem Tartrate (Ambien) 5 mg QHS PRN PO .INSOMNIA; Start 11/09/18 at 15:00 Pantoprazole (Protonix Tab) 40 mg DAILY@06 PO Last administered on 11/11/18at 05:24; Admin Dose 40 MG; Start 11/10/18 at 06:00 Montelukast Sodium (Singulair) 10 mg HS PO Last administered on 11/10/18at 21:04; Admin Dose 10 MG; Start 11/09/18 at 21:00 Hydrocortisone (Anusol-Hc Supp) 25 mg BID PRN [place] HEMORROID PAIN/ITCHING; Start 11/10/18 at 16:30 Mesalamine (Canasa Supp) 1,000 mg HS IA ; Start 11/11/18 at 21:00 MEDARDO MLILER NP November 11, 2018 16:48
[2018-11-11 20:08] VITALS: BP 126/83; PULSE 63; RESP 18
[2018-11-11] MEDS ORDERED: NITROGLYCERIN 2% 30 GM OINT TOP SCH (21:00)
[2018-11-11] MEDS ORDERED: LIDOCAINE 2% JELLY 30 ML TOP SCH (21:00)
[2018-11-11] MEDS: HYDROCORTISONE 1% 28.35 GM OINT TOP SCH (21:29)
[2018-11-11] MEDS: NITROGLYCERIN 2% 1 GM OINT PKT TD SCH (21:29)
[2018-11-11] MEDS: LIDOCAINE 2% JELLY 5 ML TOP SCH (21:29)
[2018-11-11] MEDS: MONTELUKAST 10 MG TAB PO SCH (21:30)
[2018-11-11] MEDS: MESALAMINE 1000 MG SUPP PR SCH (21:30)
[2018-11-12 02:14] VITALS: BP 112/65; PULSE 76; RESP 20
[2018-11-12] MEDS: DOCUSATE SODIUM 100 MG CAP PO SCH ×2 (03:30→13:45)
[2018-11-12] MEDS: PANTOPRAZOLE (EC) 40 MG TAB PO SCH (05:47)
[2018-11-12 08:00] VITALS: BP 148/72; PULSE 84; RESP 20
[2018-11-12] MEDS: NITROGLYCERIN 2% 1 GM OINT PKT TD SCH ×2 (10:19→20:46)
[2018-11-12] MEDS: HYDROCORTISONE 1% 28.35 GM OINT TOP SCH ×2 (10:19→20:47)
[2018-11-12] MEDS: LIDOCAINE 2% JELLY 5 ML TOP SCH ×2 (10:19→20:47)
--- NOTE | 2018-11-12 12:24 | PN ---
Date/Time of Note Date/Time of Note DATE: 11/12/18 TIME: 12:23 Assessment/Plan VTE Prophylaxis Risk score (from [facility])>0 risk: 3 SCD applied (from [facility]): Yes Pharmacological prophylaxis: NA/contraindicated Pharm contraindication: bleeding Lines/Catheters IV C[facility] Type (from [facility] Saline Lock Urinary Cath still in place: No Assessment/Plan Hospital Course .1. hematochezia : recurrent -colonoscopy 06/2018 showed polyps removed in the ascending colon as well as in the rectum -Pathology on ascending colon polyps showed tubular adenoma and the rectal polyp showed leiomyomatous polyps without additional findings -Colonoscopy 11/10/2018 Diminutive 2 mm polyp in the rectum, ablated Biopsy show tubular adenoma Large internal hemorrhoids likely source of hematochezia 2. Acute on chronic blood loss anemia -transfused 2 units on arrival 3. Known kidney mass -needs f/u screening CT in 2 months Dispo: patient still had bloody BM post colonoscopy, surgical consult obtained, conservative mgt recommended at this time patient is maintained on Hydrocortisone suppository, mesalamine suppository, stool softeners, fiber supplementation. if no further bloody bm in 24-48h, plan to discharge to followup o/p with GI and surgery. Result Diagram: 11/12/18 0550 11/12/18 0550 Results 24hrs Laboratory Tests Test 11/12/18 05:50 White Blood Count 5.1 # Red Blood Count 4.21 L Hemoglobin 8.6 L Hematocrit 28.2 L Mean Corpuscular Volume 67.0 L Mean Corpuscular Hemoglobin 20.4 L Mean Corpuscular Hemoglobin Concent 30.5 L Red Cell Distribution Width 22.2 H Platelet Count 370 Mean Platelet Volume 10.4 Immature Granulocytes % 0.200 Neutrophils % 58.7 Lymphocytes % 29.0 Monocytes % 10.5 Eosinophils % 1.4 Basophils % 0.2 Nucleated Red Blood Cells % 0.0 Immature Granulocytes # 0.010 Neutrophils # 3.0 Lymphocytes # 1.5 Monocytes # 0.5 Eosinophils # 0.1 Basophils # 0.0 Nucleated Red Blood Cells # 0.0 Prothrombin Time 13.9 Prothrombin Time Ratio 1.1 INR International Normalized Ratio 1.06 Activated Partial Thromboplast Time 34.4 Sodium Level 140 Potassium Level 4.2 Chloride Level 108 Carbon Dioxide Level 23 Anion Gap 9 Blood Urea Nitrogen 15 Creatinine 0.86 Est Glomerular Filtrat Rate mL/min > 60 Glucose Level 103 Calcium Level 8.9 Magnesium Level 1.7 Total Bilirubin 0.7 Direct Bilirubin 0.00 Indirect Bilirubin 0.7 Aspartate Amino Transf (AST/SGOT) 14 #L Alanine Aminotransferase (ALT/SGPT) 22 Alkaline Phosphatase 60 Total Protein 6.9 Albumin 3.7 Globulin 3.20 Albumin/Globulin Ratio 1.15 Subjective 24 Hr Interval Summary Free Text/Dictation no further bloody BM since episode yesterday Exam/Review of Systems Exam Vitals Vital Signs Date Temp Pulse Resp B/P (MAP) Pulse Ox O2 O2 Flow FiO2 Time Delivery Rate 11/12/18 98.6 84 20 148/72 96 08:00 (97) 11/11/18 Room Air 14:35 11/10/18 3.0 16:10 Intake and Output 11/11/18 11/11/18 11/12/18 1414:59 22:59 06:59 IntakeIntake Total 540 ml 360 ml 300 ml BalanceBalance 540 ml 360 ml 300 ml Exam Constitutional: alert, oriented Head: atraumatic, normocephalic Neck: non-tender, supple Respiratory: clear to auscultation Cardiovascular: regular rate and rhythm Gastrointestinal: S/ NT / ND / +BS Extremities: no edema, good radial pulses Results Results 24hrs Laboratory Tests Test 11/12/18 05:50 White Blood Count 5.1 # Red Blood Count 4.21 L Hemoglobin 8.6 L Hematocrit 28.2 L Mean Corpuscular Volume 67.0 L Mean Corpuscular Hemoglobin 20.4 L Mean Corpuscular Hemoglobin Concent 30.5 L Red Cell Distribution Width 22.2 H Platelet Count 370 Mean Platelet Volume 10.4 Immature Granulocytes % 0.200 Neutrophils % 58.7 Lymphocytes % 29.0 Monocytes % 10.5 Eosinophils % 1.4 Basophils % 0.2 Nucleated Red Blood Cells % 0.0 Immature Granulocytes # 0.010 Neutrophils # 3.0 Lymphocytes # 1.5 Monocytes # 0.5 Eosinophils # 0.1 Basophils # 0.0 Nucleated Red Blood Cells # 0.0 Prothrombin Time 13.9 Prothrombin Time Ratio 1.1 INR International Normalized Ratio 1.06 Activated Partial Thromboplast Time 34.4 Sodium Level 140 Potassium Level 4.2 Chloride Level 108 Carbon Dioxide Level 23 Anion Gap 9 Blood Urea Nitrogen 15 Creatinine 0.86 Est Glomerular Filtrat Rate mL/min > 60 Glucose Level 103 Calcium Level 8.9 Magnesium Level 1.7 Total Bilirubin 0.7 Direct Bilirubin 0.00 Indirect Bilirubin 0.7 Aspartate Amino Transf (AST/SGOT) 14 #L Alanine Aminotransferase (ALT/SGPT) 22 Alkaline Phosphatase 60 Total Protein 6.9 Albumin 3.7 Globulin 3.20 Albumin/Globulin Ratio 1.15 Medications Medication Current Medications Ondansetron HCl (Zofran Inj) 4 mg Q6H PRN IV NAUSEA/VOMITING Last administered on 11/10/18at 12:06; Admin Dose 4 MG; Start 11/09/18 at 15:00 Acetaminophen (Tylenol Tab) 650 mg Q6H PRN PO .PAIN 1-3 OR TEMP; Start 11/09/18 at 15:00 Acetaminophen/ Hydrocodone Bitart ([place] (5/325)) 1 tab Q6H PRN PO .MOD PAIN 4- 6; Start 11/09/18 at 15:00 Docusate Sodium (Colace) 100 mg Q12H PO Last administered on 11/12/18at 03:30; Admin Dose 100 MG; Start 11/09/18 at 15:00 Zolpidem Tartrate (Ambien) 5 mg QHS PRN PO .INSOMNIA; Start 11/09/18 at 15:00 Pantoprazole (Protonix Tab) 40 mg DAILY@06 PO Last administered on 11/12/18at 05:47; Admin Dose 40 MG; Start 11/10/18 at 06:00 Montelukast Sodium (Singulair) 10 mg HS PO Last administered on 11/11/18at 21:30; Admin Dose 10 MG; Start 11/09/18 at 21:00 Hydrocortisone (Anusol-Hc Supp) 25 mg BID PRN [place] HEMORROID PAIN/ITCHING; Start 11/10/18 at 16:30 Mesalamine (Canasa Supp) 1,000 mg HS CA Last administered on 11/11/18 21:30; Admin Dose 1,000 MG; Start 11/11/18 at 21:00 Miscellaneous Information (* Miscellaneous Pharmacy Order) nitroglycerine 2% lidocaine ... BID XX ; Start 11/11/18 at 21:00 Hydrocortisone (Hydrocortisone 1% Oint) 1 applic BID TOP Last administered on 11/12/18at 10:19; Admin Dose 1 APPLIC; Start 11/11/18 at 21:00 Nitroglycerin (Nitroglycerin 2% Oint) 1 inch BID TD Last administered on 11/12/18at 10:19; Admin Dose 1 INCH; Start 11/11/18 at 21:00 Lidocaine (Xylocaine 2% Jelly) 1 applic BID TOP Last administered on 11/12/18at 10:19; Admin Dose 1 APPLIC; Start 11/11/18 at 21:00 GAUDENCIO LEYVA November 12, 2018 12:24
[2018-11-12] MEDS: POLYETHYLENE GLYCOL 17 GM PACKET PO SCH (13:44)
[2018-11-12 14:00] VITALS: BP 130/62; PULSE 76; RESP 18
--- NOTE | 2018-11-12 14:22 | PN ---
Date/Time of Note Date/Time of Note DATE: 11/12/18 TIME: 14:12 Assessment/Plan VTE Prophylaxis Risk score (from [facility])>0 risk: 3 SCD applied (from [facility]): Yes Pharmacological prophylaxis: other (scds) Lines/Catheters IV Catheter Type (from [facility]): Saline Lock Urinary Cath still in place: No Assessment/Plan Hospital Course Summary Assessment and Plan: Assessment: Hematochezia Colonoscopy 11/10/2018 Diminutive 2 mm polyp in the rectum, ablated Biopsy show tubular adenoma Large internal hemorrhoids likely source of hematochezia Microcytic anemia Personal history of colon polyps (TA, and Leiomyomatous) s/p Colonoscopy 07/21/18 x3 colon polyps, ablated Left kidney mass -12.6 mm exophytic mass medial lower pole left kidney with small calcifications. -Work-up per hospitalist Asthma History of SBO Plan: Continue Canasa Will recheck H/H, transfuse as needed F/u surgical recommendations Patient seen in collaboration with Dr. Granados Subjective: Course reviewed with nursing staff Patient interviewed and examined All labs, imaging and other results reviewed Pt states he continues to have rectal bleeding. He denies constipation or diarrhea at this time. He was evaluated by surgery today who recommends to treat medically. No plan for emergent surgical. Per surgery unimproved or worsens we will consider surgery at that point. Patient denies n/v or abdominal pain. Constitutional: alert, oriented Psych: no complaints, nl mood/affect Head: normocephalic Eyes: nl conjunctiva Neck: supple Respiratory: clear to auscultation Cardiovascular: regular rate and rhythm Gastrointestinal: soft, non-tender, bowel sounds; No distended Musculoskeletal: nl extremities to inspection Result Diagram: 11/12/18 0550 11/12/18 0550 Results 24hrs Laboratory Tests Test 11/12/18 05:50 White Blood Count 5.1 # Red Blood Count 4.21 L Hemoglobin 8.6 L Hematocrit 28.2 L Mean Corpuscular Volume 67.0 L Mean Corpuscular Hemoglobin 20.4 L Mean Corpuscular Hemoglobin Concent 30.5 L Red Cell Distribution Width 22.2 H Platelet Count 370 Mean Platelet Volume 10.4 Immature Granulocytes % 0.200 Neutrophils % 58.7 Lymphocytes % 29.0 Monocytes % 10.5 Eosinophils % 1.4 Basophils % 0.2 Nucleated Red Blood Cells % 0.0 Immature Granulocytes # 0.010 Neutrophils # 3.0 Lymphocytes # 1.5 Monocytes # 0.5 Eosinophils # 0.1 Basophils # 0.0 Nucleated Red Blood Cells # 0.0 Prothrombin Time 13.9 Prothrombin Time Ratio 1.1 INR International Normalized Ratio 1.06 Activated Partial Thromboplast Time 34.4 Sodium Level 140 Potassium Level 4.2 Chloride Level 108 Carbon Dioxide Level 23 Anion Gap 9 Blood Urea Nitrogen 15 Creatinine 0.86 Est Glomerular Filtrat Rate mL/min > 60 Glucose Level 103 Calcium Level 8.9 Magnesium Level 1.7 Total Bilirubin 0.7 Direct Bilirubin 0.00 Indirect Bilirubin 0.7 Aspartate Amino Transf (AST/SGOT) 14 #L Alanine Aminotransferase (ALT/SGPT) 22 Alkaline Phosphatase 60 Total Protein 6.9 Albumin 3.7 Globulin 3.20 Albumin/Globulin Ratio 1.15 Exam/Review of Systems Exam Vitals Vital Signs Date Temp Pulse Resp B/P (MAP) Pulse Ox O2 O2 Flow FiO2 Time Delivery Rate 11/12/18 98.6 84 20 148/72 96 08:00 (97) 11/11/18 Room Air 14:35 11/10/18 3.0 16:10 Intake and Output 11/11/18 11/11/18 11/12/18 1515:00 23:00 07:00 IntakeIntake Total 540 ml 360 ml 300 ml BalanceBalance 540 ml 360 ml 300 ml Results Results 24hrs Laboratory Tests Test 11/12/18 05:50 White Blood Count 5.1 # Red Blood Count 4.21 L Hemoglobin 8.6 L Hematocrit 28.2 L Mean Corpuscular Volume 67.0 L Mean Corpuscular Hemoglobin 20.4 L Mean Corpuscular Hemoglobin Concent 30.5 L Red Cell Distribution Width 22.2 H Platelet Count 370 Mean Platelet Volume 10.4 Immature Granulocytes % 0.200 Neutrophils % 58.7 Lymphocytes % 29.0 Monocytes % 10.5 Eosinophils % 1.4 Basophils % 0.2 Nucleated Red Blood Cells % 0.0 Immature Granulocytes # 0.010 Neutrophils # 3.0 Lymphocytes # 1.5 Monocytes # 0.5 Eosinophils # 0.1 Basophils # 0.0 Nucleated Red Blood Cells # 0.0 Prothrombin Time 13.9 Prothrombin Time Ratio 1.1 INR International Normalized Ratio 1.06 Activated Partial Thromboplast Time 34.4 Sodium Level 140 Potassium Level 4.2 Chloride Level 108 Carbon Dioxide Level 23 Anion Gap 9 Blood Urea Nitrogen 15 Creatinine 0.86 Est Glomerular Filtrat Rate mL/min > 60 Glucose Level 103 Calcium Level 8.9 Magnesium Level 1.7 Total Bilirubin 0.7 Direct Bilirubin 0.00 Indirect Bilirubin 0.7 Aspartate Amino Transf (AST/SGOT) 14 #L Alanine Aminotransferase (ALT/SGPT) 22 Alkaline Phosphatase 60 Total Protein 6.9 Albumin 3.7 Globulin 3.20 Albumin/Globulin Ratio 1.15 Medications Medication Current Medications Ondansetron HCl (Zofran Inj) 4 mg Q6H PRN IV NAUSEA/VOMITING Last administered on 11/10/18 12:06; Admin Dose 4 MG; Start 11/09/18 at 15:00 Acetaminophen (Tylenol Tab) 650 mg Q6H PRN PO .PAIN 1-3 OR TEMP; Start 11/09/18 at 15:00 Acetaminophen/ Hydrocodone Bitart ([place] (5/325)) 1 tab Q6H PRN PO .MOD PAIN 4- 6; Start 11/09/18 at 15:00 Docusate Sodium (Colace) 100 mg Q12H PO Last administered on 11/12/18at 13:45; Admin Dose 100 MG; Start 11/09/18 at 15:00 Zolpidem Tartrate (Ambien) 5 mg QHS PRN PO .INSOMNIA; Start 11/09/18 at 15:00 Pantoprazole (Protonix Tab) 40 mg DAILY@06 PO Last administered on 11/12/18at 05:47; Admin Dose 40 MG; Start 11/10/18 at 06:00 Montelukast Sodium (Singulair) 10 mg HS PO Last administered on 11/11/18at 21:30; Admin Dose 10 MG; Start 11/09/18 at 21:00 Hydrocortisone (Anusol-Hc Supp) 25 mg BID PRN MO HEMORROID PAIN/ITCHING; Start 11/10/18 at 16:30 Mesalamine (Canasa Supp) 1,000 mg HS MO Last administered on 11/11/18at 21:30; Admin Dose 1,000 MG; Start 11/11/18 at 21:00 Miscellaneous Information (* Miscellaneous Pharmacy Order) nitroglycerine 2% lidocaine ... BID XX ; Start 11/11/18 at 21:00 Hydrocortisone (Hydrocortisone 1% Oint) 1 applic BID TOP Last administered on 11/12/18 10:19; Admin Dose 1 APPLIC; Start 11/11/18 at 21:00 Nitroglycerin (Nitroglycerin 2% Oint) 1 inch BID TD Last administered on 11/12/18 10:19; Admin Dose 1 INCH; Start 11/11/18 at 21:00 Lidocaine (Xylocaine 2% Jelly) 1 applic BID TOP Last administered on 11/12/18 10:19; Admin Dose 1 APPLIC; Start 11/11/18 at 21:00 Polyethylene Glycol (Miralax) 17 gm DAILY PO Last administered on 11/12/18at 13:44; Admin Dose 17 GM; Start 11/12/18 at 12:30 BRIDGETT PERRY November 12, 2018 14:22
--- NOTE | 2018-11-12 15:32 | PN ---
Date/Time of Note Date/Time of Note DATE: 11/12/18 TIME: 15:25 Assessment/Plan Lines/Catheters IV Catheter Type (from [facility]): Saline Lock [place] in [place] (from [facility]): No Assessment/Plan Chief Complaint/Hosp Course 1. Hematochezia with noted internal and external hemorrhoids. On exam, hemorrhoids were very small; no overt bleeding noted -Ensure easy bowel movements without constipation> had lengthy discussion with patient regarding increasing fiber and fluids -Sits baths as needed -Hemorrhoid ointment -Since continues to have bleeding with bowel movements, we will proceed with THD tomorrow. -N.p.o. after midnight 2. Iron deficiency anemia: -Medical follow-up 3. Diminutive tubular adenoma -Medical follow-up 4. Left kidney mass: -Per medical team Thank you. Patient seen and examined in collaboration with Dr. Christiano Ahmadi. Subjective 24 Hr Interval Summary Continues to have bleeding per rectum. No fevers, chills, sob, congested cough, cp, palpitations, drake, dizziness, n/v/d/dysuria. hh stable Exam/Review of Systems Vital Signs Vitals Vital Signs Date Temp Pulse Resp B/P (MAP) Pulse Ox O2 O2 Flow FiO2 Time Delivery Rate 11/12/18 98.6 84 20 148/72 96 08:00 (97) 11/11/18 Room Air 14:35 11/10/18 3.0 16:10 Intake and Output 11/11/18 11/11/18 11/12/18 1515:00 23:00 07:00 IntakeIntake Total 540 ml 360 ml 300 ml BalanceBalance 540 ml 360 ml 300 ml Exam Free Text/Dictation Constitutional: alert, oriented Psych: anxiety (Minimal) Head: normocephalic, atraumatic Eyes: nl conjunctiva, EOMI, nl lids, nl sclera ENMT: nl external ears & nose, nl lips & teeth, mucosa pink and moist Neck: supple, non-tender; No jvd Respiratory: normal air movement; No congested cough Cardiovascular: regular rate and rhythm, nl pulses Gastrointestinal: soft, non-tender Genitourinary - Male: nl penis, nl scrotum Musculoskeletal: nl extremities to inspection, nl gait and stance Extremities: normal pulses Neurological: nl mental status, nl speech, nl strength Skin: nl turgor; No rash or lesions Additional Comments Rectal: Small external hemorrhoid, small palpable internal hemorrhoid, no blood noted Results Result Diagram: 11/12/18 1429 11/12/18 0550 MEDARDO MILLER NP November 12, 2018 15:32
--- NOTE | 2018-11-12 17:25 | PREAC ---
Date/Time of Note Date/Time of Note DATE: 11/12/18 TIME: 17:25 Anesthesia Eval and Record Evaluation Time Pre-Procedure Interview DATE: 11/12/18 TIME: 17:25 Age 58 Sex male NPO: 8 hrs Preoperative diagnosis HEMORROID Planned procedure TRANSANAL HEMORROID DEARTERIALIZATION Past Medical History Past Medical History: Includes Pulm: Asthma Heme: Anemia Surgery & Anesthesia Issues No known issue Meds Anticoagulation: No Beta Bebo within 24 hr: No Reason Beta Bebo not given: Pt. not on B-Bebo Active Scripts Albuterol Sulfate* (Ventolin HFA*) 18 Gm Hfa.aer.ad, 2 PUFF INHALATION Q4H PRN for sob , #1 INHALER Prov:GAUDENCIO LEYVA . 11/11/18 Psyllium Husk-Aspartame (Metamucil Fiber Singles Packet) 3.4 Gm Powd.pack, 3.4 GM PO DAILY, #30 PACKET 2 Refills Prov:GAUDENCIO LEYVA . 11/11/18 Phenylephrine HCl/Palestine Butter* (Preparation H* Suppository) 1 Each Supp.rect, 1 EACH SC TID PRN for PAIN, #30 SUPP.RECT Prov:GAUDENCIO LEYVA . 11/11/18 [Hydrocortisone Supp] 25 MG SUPP No Conflict Check, 25 MG SC BID PRN for HEMORROID PAIN/ITCHING, #30 SUPP.RECT Prov:GAUDENCIO LEYVA . 11/11/18 Docusate Sodium* (Colace*) 100 Mg Capsule, 100 MG PO Q12H, #60 CAP 2 Refills Prov:GAUDENCIO LEYVA. 11/11/18 Montelukast Sodium* (Montelukast Sodium*) 10 Mg Tablet, 10 MG PO HS for 30 Days, #30 TAB 2 Refills Prov:GAUDENCIO LEYVA . 11/11/18 Discontinued Scripts Hydrocortisone Acetate (Anusol-Hc) 25 Mg Supp.rect, 25 MG SC BID, #14 SUPP.RECT Prov:GABRIELLE LOCKETTP S. 07/23/18 Pantoprazole* (Pantoprazole*) 40 Mg Tablet.dr, 40 MG PO BID@06,18, #60 5 Refills Prov:MARYANA LOCKETT S. 1/31/19 Current Medications Ondansetron HCl (Zofran Inj) 4 mg Q6H PRN IV NAUSEA/VOMITING Last administered on 11/10/18at 12:06; Admin Dose 4 MG; Start 11/09/18 at 15:00 Acetaminophen (Tylenol Tab) 650 mg Q6H PRN PO .PAIN 1-3 OR TEMP; Start 11/09/18 at 15:00 Acetaminophen/ Hydrocodone Bitart ([place] (5/325)) 1 tab Q6H PRN PO .MOD PAIN 4- 6; Start 11/09/18 at 15:00 Docusate Sodium (Colace) 100 mg Q12H PO Last administered on 11/12/18at 13:45; Admin Dose 100 MG; Start 11/09/18 at 15:00 Zolpidem Tartrate (Ambien) 5 mg QHS PRN PO .INSOMNIA; Start 11/09/18 at 15:00 Pantoprazole (Protonix Tab) 40 mg DAILY@06 PO Last administered on 11/12/18at 05:47; Admin Dose 40 MG; Start 11/10/18 at 06:00 Montelukast Sodium (Singulair) 10 mg HS PO Last administered on 11/11/18at 21:3 0; Admin Dose 10 MG; Start 11/09/18 at 21:00 Hydrocortisone (Anusol-Hc Supp) 25 mg BID PRN SC HEMORROID PAIN/ITCHING; Start 11/10/18 at 16:30 Mesalamine (Canasa Supp) 1,000 mg HS SC Last administered on 11/11/18at 21:30; Admin Dose 1,000 MG; Start 11/11/18 at 21:00 Miscellaneous Information (* Miscellaneous Pharmacy Order) nitroglycerine 2% lidocaine ... BID XX ; Start 11/11/18 at 21:00 Hydrocortisone (Hydrocortisone 1% Oint) 1 applic BID TOP Last administered on 11/12/18 10:19; Admin Dose 1 APPLIC; Start 11/11/18 at 21:00 Nitroglycerin (Nitroglycerin 2% Oint) 1 inch BID TD Last administered on 11/12/18 10:19; Admin Dose 1 INCH; Start 11/11/18 at 21:00 Lidocaine (Xylocaine 2% Jelly) 1 applic BID TOP Last administered on 5/23/19at 10:19; Admin Dose 1 APPLIC; Start 11/11/18 at 21:00 Polyethylene Glycol (Miralax) 17 gm DAILY PO Last administered on 11/12/18at 13:44; Admin Dose 17 GM; Start 11/12/18 at 12:30 Meds reviewed: Yes Allergies Coded Allergies: No Known Allergy (Unverified , 11/09/18) Allergies Reviewed: Yes Labs/Studies Labs Reviewed: Reviewed by anesthesiologist Result Diagram: 11/12/18 1429 11/12/18 0550 Laboratory Tests 11/12/18 05:50 11/12/18 14:29 test: N/A Pre-procedure Exam Last vitals Vital Signs Date Temp Pulse Resp B/P (MAP) Pulse Ox O2 O2 Flow FiO2 Time Delivery Rate 11/12/18 97.8 76 18 130/62 96 14:00 (84) 11/11/18 Room Air 14:35 11/10/18 3.0 16:10 Airway: Adequate mouth opening Mallampati: Mallampati II Teeth: Normal Lung: Normal Heart: Normal ASA Physical Status ASA physical status: 2 Emergency: None Planned Anesthetic General/MAC: ETT Pre-operative Attestations Prior to commencing anesthesia and surgery, the patient was re-evaluated, there was verification of: *The patient's identity *The results of appropriate recent lab work and preoperative vital signs *The above evaluation not changing prior to induction *Anesthetic plan, risk benefits, alternative and complications discussed with patient/family; questions answered; patient/family understands, accepts and wishes to proceed. PETER OSULLIVAN November 12, 2018 17:25
[2018-11-12 20:00] VITALS: BP 116/72; PULSE 64; RESP 18
[2018-11-12] MEDS: MESALAMINE 1000 MG SUPP PR SCH (20:46)
[2018-11-12] MEDS: MONTELUKAST 10 MG TAB PO SCH (20:47)
[2018-11-13 02:00] VITALS: BP 109/67; PULSE 65; RESP 18
[2018-11-13] MEDS: DOCUSATE SODIUM 100 MG CAP PO SCH ×2 (03:57→14:27)
[2018-11-13] MEDS: PANTOPRAZOLE (EC) 40 MG TAB PO SCH (05:25)
[2018-11-13 08:05] VITALS: BP 111/78; PULSE 71; RESP 19
[2018-11-13] MEDS: POLYETHYLENE GLYCOL 17 GM PACKET PO SCH (09:00)
[2018-11-13] MEDS: NITROGLYCERIN 2% 1 GM OINT PKT TD SCH (09:26)
[2018-11-13] MEDS: LIDOCAINE 2% JELLY 5 ML TOP SCH (09:27)
[2018-11-13] MEDS: HYDROCORTISONE 1% 28.35 GM OINT TOP SCH (09:27)
--- NOTE | 2018-11-13 11:17 | PN ---
Date/Time of Note Date/Time of Note DATE: 11/13/18 TIME: 11:11 Assessment/Plan VTE Prophylaxis [place] [facility] risk: 2 [place]CD applied [place] [facility] Yes Pharmacological prophylaxis: NA/contraindicated Pharm contraindication: bleeding Lines/Catheters IV C[facility] Type (from [facility] Saline Lock Urinary Cath still in place: No Assessment/Plan Hospital Course Subjective: no further bloody BM since episode yesterday Exam Constitutional: alert, oriented Head: atraumatic, normocephalic Neck: non-tender, supple Respiratory: clear to auscultation Cardiovascular: regular rate and rhythm Gastrointestinal: S/ NT / ND / +BS Extremities: no edema, good radial pulses assessment and plan: .1. hematochezia : recurrent -colonoscopy 06/2018 showed polyps removed in the ascending colon as well as in the rectum -Pathology on ascending colon polyps showed tubular adenoma and the rectal polyp showed leiomyomatous polyps without additional findings -Colonoscopy 11/10/2018 Diminutive 2 mm polyp in the rectum, ablated Biopsy show tubular adenoma Large internal hemorrhoids likely source of hematochezia 2. Acute on chronic blood loss anemia -transfused 2 units on arrival 3. Known kidney mass -needs f/u screening CT in 2 months Dispo: patient still had bloody BM post colonoscopy, surgical consult obtained, planned for hemorrhoidectomy today patient is maintained on Hydrocortisone suppository, mesalamine suppository, stool softeners, fiber supplementation. Result Diagram: 11/13/18 0615 11/13/18 0615 Results 24hrs Laboratory Tests Test 11/12/18 14:29 11/13/18 06:15 Hemoglobin 8.6 L 8.4 L Hematocrit 28.5 L 27.6 L White Blood Count 5.2 Red Blood Count 4.12 L Mean Corpuscular Volume 67.0 L Mean Corpuscular Hemoglobin 20.4 L Mean Corpuscular Hemoglobin Concent 30.4 L Red Cell Distribution Width 22.6 H Platelet Count 332 Mean Platelet Volume 9.9 Immature Granulocytes % 0.200 Neutrophils % 60.2 Lymphocytes % 26.6 Monocytes % 10.7 Eosinophils % 1.7 Basophils % 0.6 Nucleated Red Blood Cells % 0.0 Immature Granulocytes # 0.010 Neutrophils # 3.1 Lymphocytes # 1.4 Monocytes # 0.6 Eosinophils # 0.1 Basophils # 0.0 Nucleated Red Blood Cells # 0.0 Sodium Level 139 Potassium Level 3.9 Chloride Level 107 Carbon Dioxide Level 25 Anion Gap 7 Blood Urea Nitrogen 14 Creatinine 0.81 Est Glomerular Filtrat Rate mL/min > 60 Glucose Level 96 Calcium Level 8.9 Total Bilirubin 1.0 Direct Bilirubin 0.00 Indirect Bilirubin 1.0 Aspartate Amino Transf (AST/SGOT) 17 Alanine Aminotransferase (ALT/SGPT) 23 Alkaline Phosphatase 56 Total Protein 6.6 Albumin 3.7 Globulin 2.90 Albumin/Globulin Ratio 1.27 Exam/Review of Systems Exam Vitals Vital Signs Date Temp Pulse Resp B/P (MAP) Pulse Ox O2 O2 Flow FiO2 Time Delivery Rate 11/13/18 98.8 71 19 111/78 99 08:05 (89) 11/13/18 Room Air 02:00 11/10/18 3.0 16:10 Intake and Output 11/12/18 11/12/18 11/13/18 1515:00 23:00 07:00 IntakeIntake Total 600 ml 240 ml BalanceBalance 600 ml 240 ml Results Results 24hrs Laboratory Tests Test 11/12/18 14:29 11/13/18 06:15 Hemoglobin 8.6 L 8.4 L Hematocrit 28.5 L 27.6 L White Blood Count 5.2 Red Blood Count 4.12 L Mean Corpuscular Volume 67.0 L Mean Corpuscular Hemoglobin 20.4 L Mean Corpuscular Hemoglobin Concent 30.4 L Red Cell Distribution Width 22.6 H Platelet Count 332 Mean Platelet Volume 9.9 Immature Granulocytes % 0.200 Neutrophils % 60.2 Lymphocytes % 26.6 Monocytes % 10.7 Eosinophils % 1.7 Basophils % 0.6 Nucleated Red Blood Cells % 0.0 Immature Granulocytes # 0.010 Neutrophils # 3.1 Lymphocytes # 1.4 Monocytes # 0.6 Eosinophils # 0.1 Basophils # 0.0 Nucleated Red Blood Cells # 0.0 Sodium Level 139 Potassium Level 3.9 Chloride Level 107 Carbon Dioxide Level 25 Anion Gap 7 Blood Urea Nitrogen 14 Creatinine 0.81 Est Glomerular Filtrat Rate mL/min > 60 Glucose Level 96 Calcium Level 8.9 Total Bilirubin 1.0 Direct Bilirubin 0.00 Indirect Bilirubin 1.0 Aspartate Amino Transf (AST/SGOT) 17 Alanine Aminotransferase (ALT/SGPT) 23 Alkaline Phosphatase 56 Total Protein 6.6 Albumin 3.7 Globulin 2.90 Albumin/Globulin Ratio 1.27 Medications Medication Current Medications Ondansetron HCl (Zofran Inj) 4 mg Q6H PRN IV NAUSEA/VOMITING Last administered on 11/10/18 12:06; Admin Dose 4 MG; Start 11/09/18 at 15:00 Acetaminophen (Tylenol Tab) 650 mg Q6H PRN PO .PAIN 1-3 OR TEMP; Start 11/09/18 at 15:00 Acetaminophen/ Hydrocodone Bitart ([place] (5/325)) 1 tab Q6H PRN PO .MOD PAIN 4- 6; Start 11/09/18 at 15:00 Docusate Sodium (Colace) 100 mg Q12H PO Last administered on 11/13/18 03:57; Admin Dose 100 MG; Start 11/09/18 at 15:00 Zolpidem Tartrate (Ambien) 5 mg QHS PRN PO .INSOMNIA; Start 11/09/18 at 15:00 Pantoprazole (Protonix Tab) 40 mg DAILY@06 PO Last administered on 11/12/18 05:47; Admin Dose 40 MG; Start 11/10/18 at 06:00 Montelukast Sodium (Singulair) 10 mg HS PO Last administered on 11/12/18 20:47; Admin Dose 10 MG; Start 11/09/18 at 21:00 Hydrocortisone (Anusol-Hc Supp) 25 mg BID PRN [place] HEMORROID PAIN/ITCHING; Start 11/10/18 at 16:30 Mesalamine (Canasa Supp) 1,000 mg HS PA Last administered on 11/12/18 20:46; Admin Dose 1,000 MG; Start 11/11/18 at 21:00 Miscellaneous Information (* Miscellaneous Pharmacy Order) nitroglycerine 2% lidocaine ... BID XX ; Start 11/11/18 at 21:00 Hydrocortisone (Hydrocortisone 1% Oint) 1 applic BID TOP Last administered on 11/13/18 09:27; Admin Dose 1 APPLIC; Start 11/11/18 at 21:00 Nitroglycerin (Nitroglycerin 2% Oint) 1 inch BID TD Last administered on 11/13/18 09:26; Admin Dose 1 INCH; Start 11/11/18 at 21:00 Lidocaine (Xylocaine 2% Jelly) 1 applic BID TOP Last administered on 5/24/19at 09:27; Admin Dose 1 APPLIC; Start 11/11/18 at 21:00 Polyethylene Glycol (Miralax) 17 gm DAILY PO Last administered on 11/12/18at 13:44; Admin Dose 17 GM; Start 11/12/18 at 12:30 GAUDENCIO LEYVA November 13, 2018 11:17
--- NOTE | 2018-11-13 13:17 | PN ---
Date/Time of Note Date/Time of Note DATE: 11/13/18 TIME: 13:15 Assessment/Plan Lines/Catheters IV Catheter Type (from [facility]): [place] in [place] (from [facility]): No Assessment/Plan Chief Complaint/Hosp Course 1. Hematochezia with noted internal and external hemorrhoids. On exam, hemorrhoids were very small; no overt bleeding noted -Ensure easy bowel movements without constipation> had lengthy discussion with patient regarding increasing fiber and fluids -Sits baths as needed -Hemorrhoid ointment -Since continues to have bleeding with bowel movements, we will proceed with THD today -N.p.o 2. Iron deficiency anemia: -Medical follow-up 3. Diminutive tubular adenoma -Medical follow-up 4. Left kidney mass: -Per medical team Thank you. Patient seen and examined in collaboration with Dr. Christiano Ahmadi. Subjective 24 Hr Interval Summary Some bleeding again noted per patient with bowel movement. OR today. No fever s, chills, sob, congested cough, cp, palpitations, drake, dizziness, nausea, vomiting, diarrhea, dysuria. Exam/Review of Systems Vital Signs Vitals Vital Signs Date Temp Pulse Resp B/P (MAP) Pulse Ox O2 O2 Flow FiO2 Time Delivery Rate 11/13/18 98.8 71 19 111/78 99 08:05 (89) 11/13/18 Room Air 02:00 11/10/18 3.0 16:10 Intake and Output 11/12/18 11/12/18 11/13/18 1515:00 23:00 07:00 IntakeIntake Total 600 ml 240 ml BalanceBalance 600 ml 240 ml Exam Free Text/Dictation Constitutional: alert, oriented Psych: anxiety (Minimal) Head: normocephalic, atraumatic Eyes: nl conjunctiva, EOMI, nl lids, nl sclera ENMT: nl external ears & nose, nl lips & teeth, mucosa pink and moist Neck: supple, non-tender; No jvd Respiratory: normal air movement; No congested cough Cardiovascular: regular rate and rhythm, nl pulses Gastrointestinal: soft, non-tender Genitourinary - Male: nl penis, nl scrotum Musculoskeletal: nl extremities to inspection, nl gait and stance Extremities: normal pulses Neurological: nl mental status, nl speech, nl strength Skin: nl turgor; No rash or lesions Additional Comments Rectal: Small external hemorrhoid, small palpable internal hemorrhoid, no blood noted Results Result Diagram: 11/13/18 0615 11/13/18 0615 MEDARDO MILLER NP November 13, 2018 13:17
--- NOTE | 2018-11-13 14:17 | PN ---
Date/Time of Note Date/Time of Note DATE: 11/13/18 TIME: 14:12 Assessment/Plan VTE [place] [facility] [place]: 2 [place] [facility] [place] Pharmacological prophylaxis: NA/contraindicated Pharm contraindication: bleeding Lines/Catheters IV [facility]from [facility] [place] Urinary Cath still in place: No Assessment/Plan Assessment/Plan Assessment: Hematochezia Colonoscopy 11/10/2018 Diminutive 2 mm polyp in the rectum, ablated Biopsy show tubular adenoma Large internal hemorrhoids likely source of hematochezia Microcytic anemia Personal history of colon polyps (TA, and Leiomyomatous) s/p Colonoscopy 07/21/18 x3 colon polyps, ablated Left kidney mass -12.6 mm exophytic mass medial lower pole left kidney with small calcifications. -Work-up per hospitalist Asthma History of SBO Plan: Patient is scheduled for hemorrhoidectomy today Monitor H&H Was used for hemoglobin less than 7.5 Patient seen in collaboration with Dr. Roger Subjective: Course reviewed with nursing staff Patient interviewed and examined All labs, imaging and other results reviewed Patient is currently n.p.o. for hemorrhoidectomy scheduled this afternoon. He denies abdominal pain, nausea or vomiting. Hemoglobin dropped to 8.4. Discussed the plan with the patient. We will continue monitoring. Constitutional: alert, oriented Psych: no complaints, nl mood/affect Head: normocephalic Eyes: nl conjunctiva Neck: supple Respiratory: clear to auscultation Cardiovascular: regular rate and rhythm Gastrointestinal: soft, non-tender, bowel sounds; No distended Musculoskeletal: nl extremities to inspection Result Diagram: 11/13/18 0615 11/13/18 0615 Results 24hrs Laboratory Tests Test 11/12/18 14:29 11/13/18 06:15 Hemoglobin 8.6 L 8.4 L Hematocrit 28.5 L 27.6 L White Blood Count 5.2 Red Blood Count 4.12 L Mean Corpuscular Volume 67.0 L Mean Corpuscular Hemoglobin 20.4 L Mean Corpuscular Hemoglobin Concent 30.4 L Red Cell Distribution Width 22.6 H Platelet Count 332 Mean Platelet Volume 9.9 Immature Granulocytes % 0.200 Neutrophils % 60.2 Lymphocytes % 26.6 Monocytes % 10.7 Eosinophils % 1.7 Basophils % 0.6 Nucleated Red Blood Cells % 0.0 Immature Granulocytes # 0.010 Neutrophils # 3.1 Lymphocytes # 1.4 Monocytes # 0.6 Eosinophils # 0.1 Basophils # 0.0 Nucleated Red Blood Cells # 0.0 Sodium Level 139 Potassium Level 3.9 Chloride Level 107 Carbon Dioxide Level 25 Anion Gap 7 Blood Urea Nitrogen 14 Creatinine 0.81 Est Glomerular Filtrat Rate mL/min > 60 Glucose Level 96 Calcium Level 8.9 Total Bilirubin 1.0 Direct Bilirubin 0.00 Indirect Bilirubin 1.0 Aspartate Amino Transf (AST/SGOT) 17 Alanine Aminotransferase (ALT/SGPT) 23 Alkaline Phosphatase 56 Total Protein 6.6 Albumin 3.7 Globulin 2.90 Albumin/Globulin Ratio 1.27 CC: LYNNE BARROS MD ; Exam/Review of Systems Exam Vitals Vital Signs Date Temp Pulse Resp B/P (MAP) Pulse Ox O2 O2 Flow FiO2 Time Delivery Rate 11/13/18 98.8 71 19 111/78 99 08:05 (89) 11/13/18 Room Air 02:00 11/10/18 3.0 16:10 Intake and Output 11/12/18 11/12/18 11/13/18 1515:00 23:00 07:00 IntakeIntake Total 600 ml 240 ml BalanceBalance 600 ml 240 ml Results Results 24hrs Laboratory Tests Test 11/12/18 14:29 11/13/18 06:15 Hemoglobin 8.6 L 8.4 L Hematocrit 28.5 L 27.6 L White Blood Count 5.2 Red Blood Count 4.12 L Mean Corpuscular Volume 67.0 L Mean Corpuscular Hemoglobin 20.4 L Mean Corpuscular Hemoglobin Concent 30.4 L Red Cell Distribution Width 22.6 H Platelet Count 332 Mean Platelet Volume 9.9 Immature Granulocytes % 0.200 Neutrophils % 60.2 Lymphocytes % 26.6 Monocytes % 10.7 Eosinophils % 1.7 Basophils % 0.6 Nucleated Red Blood Cells % 0.0 Immature Granulocytes # 0.010 Neutrophils # 3.1 Lymphocytes # 1.4 Monocytes # 0.6 Eosinophils # 0.1 Basophils # 0.0 Nucleated Red Blood Cells # 0.0 Sodium Level 139 Potassium Level 3.9 Chloride Level 107 Carbon Dioxide Level 25 Anion Gap 7 Blood Urea Nitrogen 14 Creatinine 0.81 Est Glomerular Filtrat Rate mL/min > 60 Glucose Level 96 Calcium Level 8.9 Total Bilirubin 1.0 Direct Bilirubin 0.00 Indirect Bilirubin 1.0 Aspartate Amino Transf (AST/SGOT) 17 Alanine Aminotransferase (ALT/SGPT) 23 Alkaline Phosphatase 56 Total Protein 6.6 Albumin 3.7 Globulin 2.90 Albumin/Globulin Ratio 1.27 Medications Medication Current Medications Ondansetron HCl (Zofran Inj) 4 mg Q6H PRN IV NAUSEA/VOMITING Last administered on 11/10/18at 12:06; Admin Dose 4 MG; Start 11/09/18 at 15:00 Acetaminophen (Tylenol Tab) 650 mg Q6H PRN PO .PAIN 1-3 OR TEMP; Start 11/09/18 at 15:00 Acetaminophen/ Hydrocodone Bitart ([place] (5/325)) 1 tab Q6H PRN PO .MOD PAIN 4- 6; Start 11/09/18 at 15:00 Docusate Sodium (Colace) 100 mg Q12H PO Last administered on 11/13/18at 03:57; A dmin Dose 100 MG; Start 11/09/18 at 15:00 Zolpidem Tartrate (Ambien) 5 mg QHS PRN PO .INSOMNIA; Start 11/09/18 at 15:00 Pantoprazole (Protonix Tab) 40 mg DAILY@06 PO Last administered on 11/12/18at 0 5:47; Admin Dose 40 MG; Start 11/10/18 at 06:00 Montelukast Sodium (Singulair) 10 mg HS PO Last administered on 11/12/18at 20:47; Admin Dose 10 MG; Start 11/09/18 at 21:00 Hydrocortisone (Anusol-Hc Supp) 25 mg BID PRN MN HEMORROID PAIN/ITCHING; Start 11/10/18 at 16:30 Mesalamine (Canasa Supp) 1,000 mg HS MN Last administered on 11/12/18at 20:46; Admin Dose 1,000 MG; Start 11/11/18 at 21:00 Miscellaneous Information (* Miscellaneous Pharmacy Order) nitroglycerine 2% lidocaine ... BID XX ; Start 11/11/18 at 21:00 Hydrocortisone (Hydrocortisone 1% Oint) 1 applic BID TOP Last administered on 11/13/18at 09:27; Admin Dose 1 APPLIC; Start 11/11/18 at 21:00 Nitroglycerin (Nitroglycerin 2% Oint) 1 inch BID TD Last administered on 11/13/18 09:26; Admin Dose 1 INCH; Start 11/11/18 at 21:00 Lidocaine (Xylocaine 2% Jelly) 1 applic BID TOP Last administered on 11/13/18 09:27; Admin Dose 1 APPLIC; Start 11/11/18 at 21:00 Polyethylene Glycol (Miralax) 17 gm DAILY PO Last administered on 11/12/18at 13:44; Admin Dose 17 GM; Start 11/12/18 at 12:30 RENEE PATTERSON NP November 13, 2018 14:17
[2018-11-13 14:27] VITALS: BP 119/75; PULSE 80; RESP 18
--- NOTE | 2018-11-13 18:51 | PDOCDIS ---
Discharge Instructions DIAGNOSIS Discharge Diagnosis 1. hematochezia : recurrent -repeat colonoscopy November 10, 2018 showed large internal hemorrhoids likely cause of bleeding as well as a diminutive 2 mm polyp in the rectum that was ablated. 2. Acute on chronic blood loss anemia -transfused 2 units 3. Known kidney mass -needs f/u screening CT in 2 months . CONDITION [id number] Patient Condition: [id number] Stable HOME CARE INSTRUCTIONS: [id number] Special Diet: [id number] High fiber diet ACTIVITY: [id number] Activity Restrictions: [id number] Slowly Increase Activity Rest between Activity FOLLOW UP/APPOINTMENTS Follow-up Plan Your colonoscopy showed that you have a large hemorrhoid in your rectum. Also a rectal polyp was ablated. 1. You need to maintain a diet very high in fiber. I have started you on stool softeners and fiber supplements to help with this. Your nurse who provided with handouts to help guide you with a high-fiber diet. 2. You need a repeat colonoscopy in 5 years 3. If your bleeding persists, you will have to consider hemorrhoid surgery. 4. See your primary care doctor as soon as possible to let them know all of this. La colonoscopia demostr que tienes megan gran hemorroide en el recto. Tambin se drake extirpado un plipo rectal. 1. usted necesita mantener megan dieta muy octavio en fibra. Te he empezado con ablandadores de heces y suplementos de fibra para ayudar con esto. Lambert enfermera que proporcion folletos para ayudarle a guiarle con megan dieta octavio en fibra. 2. se necesita megan colonoscopia repetida en 5 aos 3. Si lambert sangrado persiste, usted tendr que considerar la ciruga de hemorroides. 4. Tambin tiene megan masa renal que hemos estado monitoreando. Es necesario repetir la exploracin por TAC de los riones despus de 2 meses para asegurarse de que no se est haciendo ms jennifer. 5. Consulte a lambert mdico de atencin primaria garibay pronto fabienne sea posible para que sepan todo esto. . GAUDENCIO LEYVA November 13, 2018 18:50
--- NOTE | 2018-11-13 18:54 | RADRPT ---
Vent Rate: 58 bpm RR Interval: 1032 msec ME Interval: 165 msec QRS Duration: 102 msec QT Interval: 431 msec QTC Interval: 424 msec P-R-T [place]: 49 - 61 - 55 degrees Sinus rhythm...normal P axis, V-rate 50- 99 Electronically Signed By: Rhys Razo
--- NOTE | 2018-11-13 18:54 | DS ---
Date/Time of Note Date/Time of Note DATE: 11/13/18 TIME: 18:51 Discharge Summary Admission/Discharge Info Admit Date/Time November 09, 2018 at 12:38 Discharge Date/Time Discharge Diagnosis 1. hematochezia : recurrent -repeat colonoscopy November 10, 2018 showed large internal hemorrhoids likely cause of bleeding as well as a diminutive 2 mm polyp in the rectum that was ablated. -Patient was initially scheduled for hemorrhoidectomy, but surgery had to be rescheduled due to logistics. Patient opted for outpatient surgical management after that. 2. Acute on chronic blood loss anemia -transfused 2 units 3. Known kidney mass -needs f/u screening CT in 2 months . Patient Condition: Stable Hx of Present Illness 58-year-old male who presents to emergency room with concerns for rectal bleeding of one days duration. Patient has had on and off rectal bleeding he states for the last 1 year. He was admitted to this facility June 2018 at that time he was admitted for recurrent small bowel obstruction but also due to hematochezia he underwent EGD and colonoscopy. EGD was found to have a duodenal ulcer and erosive esophagitis, colonoscopy had polyps removed in the ascending colon as well as in the rectal:. Pathology and ascending colon polyps showed tubular adenoma and the rectal polyp showed ligamentous polyps without additional findings. Patient did well for a while but hematochezia has recurred. In the ER, he was found to have a hemoglobin of 7.2. He is being admitted for further work-up and optimization. He denies passing out, denies dizziness, denies lethargy though. Denies melena. . Hospital Course Patient was admitted and optimized with blood transfusion. He underwent patient also has a repeat colonoscopy November 10, 2018 showed large internal hemorrhoids likely cause of bleeding as well as a diminutive 2 mm polyp in the rectum that was ablated. -GI final recommendations are high-fiber diet, if bleeding persists, patient will need to consider hemorrhoidectomy. Recommend colonoscopy in 5 years. The patient also has a known kidney mass needs f/u screening CT in 2 months. He was reminded about this. He will follow-up with his primary care doctor. patient however had persistent bleedig after the colonoscopy and surgical consult was obtained. patient was initally scheduled for hemorrhoidectomy 11/13/18 but surgery had to be deffered for logistic reasons. Patient was not happy about this and then asked to be discharged to followup at [facility] for his surgery. As he had had no further bleeding for >24hrs, he was discharged in stable condition per his request. He will followup in [facility] for eventual hemorrhoidectomy. . Home Meds Active Scripts Albuterol Sulfate* (Ventolin HFA*) 18 Gm Hfa.aer.ad, 2 PUFF INHALATION Q4H PRN for sob , #1 INHALER Prov:GAUDENCIO LEYVA. 11/11/18 Psyllium Husk-Aspartame (Metamucil Fiber Singles Packet) 3.4 Gm Powd.pack, 3.4 GM PO DAILY, #30 PACKET 2 Refills Prov:GAUDENCIO LEYVA . 11/11/18 Phenylephrine HCl/[place] Butter* (Preparation H* Suppository) 1 Each Supp.rect, 1 EACH TN TID PRN for PAIN, #30 SUPP.RECT Prov:GAUDENCIO LEYVA . 11/11/18 [Hydrocortisone Supp] 25 MG SUPP No Conflict Check, 25 MG TN BID PRN for HEMORROID PAIN/ITCHING, #30 SUPP.RECT Prov:GAUDENCIO LEYVA . 11/11/18 Docusate Sodium* (Colace*) 100 Mg Capsule, 100 MG PO Q12H, #60 CAP 2 Refills Prov:GAUDENCIO LEYVA. 11/11/18 Montelukast Sodium* (Montelukast Sodium*) 10 Mg Tablet, 10 MG PO HS for 30 Days, #30 TAB 2 Refills Prov:GAUDENCIO LEYVA. 11/11/18 Discontinued Scripts Hydrocortisone Acetate (Anusol-Hc) 25 Mg Supp.rect, 25 MG TN BID, #14 SUPP.RECT Prov:MARYANA LOCKETT S. 07/23/18 Pantoprazole* (Pantoprazole*) 40 Mg Tablet., 40 MG PO BID@,18, #60 5 Refills Prov:MARYANA LOCKETT S. 07/23/18 Follow-up Plan Your colonoscopy showed that you have a large hemorrhoid in your rectum. Also a rectal polyp was ablated. 1. You need to maintain a diet very high in fiber. I have started you on stool softeners and fiber supplements to help with this. Your nurse who provided with handouts to help guide you with a high-fiber diet. 2. You need a repeat colonoscopy in 5 years 3. If your bleeding persists, you will have to consider hemorrhoid surgery. 4. See your primary care doctor as soon as possible to let them know all of this. La colonoscopia demostr que tienes megan gran hemorroide en el recto. Tambin se drake extirpado un plipo rectal. 1. usted necesita mantener megan dieta muy octavio en fibra. Te he empezado con ablandadores de heces y suplementos de fibra para ayudar con esto. Lambert enfermera que proporcion folletos para ayudarle a guiarle con megan dieta octavio en fibra. 2. se necesita megan colonoscopia repetida en 5 aos 3. Si lambert sangrado persiste, usted tendr que considerar la ciruga de hemorroides. 4. Tambin tiene megan masa renal que hemos estado monitoreando. Es necesario repetir la exploracin por TAC de los riones despus de 2 meses para asegurarse de que no se est haciendo ms jennifer. 5. Consulte a lambert mdico de atencin primaria garibay pronto fabienne sea posible para que sepan todo esto. . Primary Care Provider Care Physician No Primary Time spent on discharge: < 30 minutes Pending Labs Laboratory Tests Test 11/13/18 06:15 White Blood Count 5.2 10^3/ul (4.8-10.8) Red Blood Count 4.12 10^6/ul (4.70-6.10) Hemoglobin 8.4 g/dl (14.0-18.0) Hematocrit 27.6 % (42.0-52.0) Mean Corpuscular Volume 67.0 fl (82.0-101.0) Mean Corpuscular Hemoglobin 20.4 pg (29.0-33.0) Mean Corpuscular Hemoglobin Concent 30.4 g/dl (32.0-37.0) Red Cell Distribution Width 22.6 % (11.5-14.5) Platelet Count 332 10^3/UL (140-415) Mean Platelet Volume 9.9 fl (7.4-10.4) Immature Granulocytes % 0.200 % (0.001-0.429) Neutrophils % 60.2 % (39.0-77.0) Lymphocytes % 26.6 % (15.0-51.0) Monocytes % 10.7 % (0.0-11.0) Eosinophils % 1.7 % (0.0-7.0) Basophils % 0.6 % (0.0-2.0) Nucleated Red Blood Cells % 0.0 /100WBC (0.0-0.0) Immature Granulocytes # 0.010 10^3/ul (0.0-0.031) Neutrophils # 3.1 10^3/ul (1.6-7.5) Lymphocytes # 1.4 10^3/ul (0.8-2.9) Monocytes # 0.6 10^3/ul (0.3-0.9) Eosinophils # 0.1 10^3/ul (0.0-0.5) Basophils # 0.0 10^3/ul (0.0-0.1) Nucleated Red Blood Cells # 0.0 10^3/ul (0.0-0.0) Sodium Level 139 mmol/L (135-144) Potassium Level 3.9 mmol/L (3.5-5.1) Chloride Level 107 mmol/L (97-110) Carbon Dioxide Level 25 mmol/L (21-31) Anion Gap 7 (5-13) Blood Urea Nitrogen 14 mg/dl (7-20) Creatinine 0.81 mg/dl (0.61-1.24) Est Glomerular Filtrat Rate mL/min > 60 mL/min (>60) Glucose Level 96 mg/dl (70-220) Calcium Level 8.9 mg/dl (8.4-10.2) Total Bilirubin 1.0 mg/dl (0.2-1.3) Direct Bilirubin 0.00 mg/dl (0.00-0.20) Indirect Bilirubin 1.0 mg/dl (0-1.1) Aspartate Amino Transf (AST/SGOT) 17 IU/L (15-46) Alanine Aminotransferase (ALT/SGPT) 23 IU/L (13-69) Alkaline Phosphatase 56 IU/L (42-121) Total Protein 6.6 g/dl (6.1-8.1) Albumin 3.7 g/dl (3.3-4.9) Globulin 2.90 g/dl (1.3-3.2) Albumin/Globulin Ratio 1.27 GAUDENCIO LEYVA November 13, 2018 18:54
[2018-11-13 20:00] VITALS: BP 135/82; PULSE 78; RESP 18
--- NOTE | 2018-11-13 20:10 | QN ---
Documentation Comment Surgery had to be cancelled since part of the equipment for THD were missing and we only found out this evening right before the case unfortunately. GIOVANNI VELASQUEZ MD November 13, 2018 20:10
== END 2018-11-13 20:25 | disposition home or self-care (01) | DRG 394 ==
LOC: E/R 08:28 → PP2 12:38
PROVIDERS: ADMIT Family Medicine; ATTEND Family Medicine
PROC: 30233N1 Transfusion of Nonautologous Red Blood Cells into Peripheral Vein, Percutaneous Approach (ICD-10-PCS; 2018-11-09)
PROC: 0DBP8ZX Excision of Rectum, Via Natural or Artificial Opening Endoscopic, Diagnostic (ICD-10-PCS; principal; 2018-11-10 16:00)
DX: K62.1 Rectal polyp (principal); D62 Acute posthemorrhagic anemia; K64.8 Other hemorrhoids; D50.0 Iron deficiency anemia secondary to blood loss (chronic)
CPT/HCPCS: 36415; 36430; 71045; 80053; 83690; 83735; 84100; 85014; 85018; 85025; 85610; 85730; 86850; 86900; 86901; 86920; 88305; 93005; 96360; 96361; J2405; J7030; J7040; J7042; P9016